=== PATIENT | female | born 1980 | race Caucasian/White ===

== ENCOUNTER → 2017-10-21 10:20 | Outpatient (CLI) | payer OTHER, SELFPAY ==
[2017-10-21 10:54] LABS: Add Manual Diff / Slide Review NO; Basophils Percent Auto 1.2 % (0-2); Hematocrit 41.2 % (36-46); Hemoglobin 14.2 g/dL (12.0-16.0); Lymphocytes Percent Auto 27.9 % (25-40); Mean Corpuscular HGB Conc 34.5 % (30-36); Mean Corpuscular Hemoglobin 30.9 PG (26-34); Mean Corpuscular Volume 89.5 fL (80-100); Monocytes Percent Auto 7.1 % (3-14); Neutrophils Absolute Auto 3900 /uL (3000-5900); Neutrophils Percent Auto 61.8 % (50-75); Platelet Count 252 X10^3/uL (150-400); Red Cell Distribution Width 13.4 % (11.6-14.8); White Blood Cell Count 6.4 X10^3/uL (4.5-11.0)
[2017-10-21 11:27] LABS: Alanine Aminotransferase 36 IU/L (9-52); Albumin 5.1 g/dL (3.5-5.0); Albumin Globulin Ratio 1.8 (1.0-2.8); Alkaline Phosphatase 50 U/L (38-126); Aspartate Aminotransferase 29 IU/L (14-36); Bilirubin Total 0.8 mg/dL (0.2-1.3); Blood Urea Nitrogen 14 mg/dL (7-17); Calcium 9.7 mg/dL (8.4-10.2); Carbon Dioxide 25 mmol/L (22-32); Chloride 100 mmol/L (98-107); Cholesterol 213 mg/dL (140-199); Estimated Glomerular Filt Rate > 60.0 mL/min (>60); Globulin 2.9 g/dL (1.7-4.1); Glucose 83 mg/dL (70-100); HDL Cholesterol 69 mg/dL (40-60); HEMOLYSIS < 15 (0-50); LDL Cholesterol Calculated 128 mg/dL (<100); Potassium 4.8 mmol/L (3.4-5.1); Sodium 140 mmol/L (137-145); Triglycerides 81 mg/dL (35-150)
[2017-10-21 11:45] LABS: Free T3, Triiodothyronine Free 2.72 pg/mL (2.77-5.27); Free T4, Direct Thyroxine 1.03 ng/dL (0.78-2.19)
[2017-10-21 11:58] LABS: Thyroid Stimulating Hormone 1.76 uIU/mL (0.47-4.68)
== END ==
PROVIDERS: PCP Family Medicine Sleep Medicine; Visit Provider Psychiatry & Neurology Psychiatry
DX: R53.83 Other fatigue (principal); Z79.899 Other long term (current) drug therapy
CPT/HCPCS: 36415; 80053; 80061; 84439; 84443; 84481; 85025

== ENCOUNTER 2018-02-02 13:18 | Outpatient (RCR) | payer OTHER, SELFPAY | END 2018-08-10 08:41 | disposition home or self-care (01) | LOC: SP 13:18 | PROVIDERS: PCP Family Medicine Sleep Medicine; Visit Provider Family Medicine | DX: Q38.1 Ankyloglossia (principal); J98.8 Other specified respiratory disorders | CPT/HCPCS: 92522 ==

== ENCOUNTER 2018-05-19 10:30 | Outpatient (RCR) | payer OTHER, SELFPAY ==
--- NOTE | 2018-02-10 17:36 | PT.OIE ---
Current Diagnoses Other female genital prolapse (02/08/18) Past Medical History (Last Updated 12/21/17 @ 09:15 by Clary Kohler) Asthma (Chronic) Hayfever (Chronic) Hidradenitis suppurativa (Chronic) 3 para 3 (Resolved) Normal Papanicolaou smear (Resolved) Recurrent sinusitis (Resolved) Past Surgical History (Last Updated 12/21/17 @ 09:12 by Clary Kohler) History of bilateral tubal ligation (Resolved) History of surgical removal of ganglion cyst (Resolved) Status post delivery (Resolved) Status post functional endoscopic sinus surgery (FESS) (Resolved 2009) Provider Visit Care Team Role Provider Type Pauline Junior DO Primary Care Provider Physician Specialty: Family Practice Address: [address] [place] [address] Email: [email or web address] Tana Morales MD Attending Provider Physician Specialty: POURER METAL Address: [address] [place] [address] Email: [email or web address] Physical Therapy Initial Evaluation PT-OP-A Visit Information Start: 02/10/18 10:17 Freq: Status: Active Protocol: Document 02/08/18 13:00 [facility] (Rec: 02/10/18 10:30 [facility] [email or web address]) Out-Patient Physical Therapy Visit Information Visit Information Visit Type Initial Evaluation Visit Start Time 13:00 Visit Stop Time 13:45 Total Visit Minutes 45 Visit Number 1 Evaluation Information Evaluation Date 02/08/18 PT-OP-B Current Condition Start: 02/10/18 10:17 Freq: Status: Active Protocol: Document 02/08/18 13:00 [facility] (Rec: 02/10/18 10:30 [facility] [email or web address]) Current Condition History of Current Condition Onset Date 4 years ago Current Complaints c/o worsening urinary urgency and frequency to void History of Current Condition Faraz is a 37 year old female who has had 3 deliveries. The last one being 4 years ago. SHe notes that for a year following her last delivery she has experienced pubic bone pain symptoms. She also began to experience increasing urgency to void and decresaed ability to delay the need to void. At this point Faraz reports she restricts her fluid intake and often feel dehydrated due to severe bladder urgency. She also reports that intercourse is uncomfortable despite position . PT-OP-C Subjective Start: 02/10/18 10:17 Freq: Status: Active Protocol: Document 02/08/18 17:05 [facility] (Rec: 02/10/18 17:36 [facility] [email or web address]) OP-PT Pain Assessment Pain Assessment Grid Paper Pain Assessment Grid Completed Yes Location suprapubic fascia and pubic bone Pain Location Details pain rated 4/10 distracting pain Scale Used Numeric (1 - 10) PT-OP-F Manual Assessment Start: 02/10/18 10:17 Freq: Status: Active Protocol: Document 02/08/18 17:05 [facility] (Rec: 02/10/18 17:36 [facility] [email or web address]) Manual Assessments Soft Tissue Assessment Soft Tissue Mobility Assessment scar tissue tightness and myofascial restrictions in the suprapubic fascia, left adductor attachments to the pubic bone, iliopsoas, tightness of the transverse perineal musculature and left illiococcygeus PT-OP-I Pelvic Floor Start: 02/10/18 10:17 Freq: Status: Active Protocol: Document 02/08/18 17:05 [facility] (Rec: 02/10/18 17:36 [facility] [email or web address]) Pelvic Floor Assessment Urine Pelvic Floor Surgery No Urinary Symptoms Urge Sensation Leaks Per Day few drops Voiding Frequency 10+ times per day Nocturia 2-3 times per night Urine Pad Type Panty Liner Pelvic Clock Pelvic Clock 3-6 Guarding Hypertonic Pelvic Clock Other MMT 3/5 for levator ani, left sided guarding of the iliococcygeus repetitive pelvic floor contractions increase c/o pubic bone pain SEMG (uV) Baseline 2.19 10 Second Contraction 6.89 Contraction Ability Manual Muscle Testing Left 3 Manual Muscle Testing Right 3 Manual Muscle Testing Anterior 3 Manual Muscle Testing Posterior 3 Comments Pelvic Floor Comments average contraction on EMG biofeedback is 6.89, maximum contraction of 12.3 and average rest of 2.19 Faraz began noting pubic bone pain around rep #7/10 PT-OP-Q Treatments Start: 02/10/18 10:17 Freq: Status: Active Protocol: Document 02/08/18 17:05 [facility] (Rec: 02/10/18 17:36 [facility] [email or web address]) Therapeutic Exercises Supine Exercises 2 Supine Exercise Name pelvic floor contract/relax Reps/Minutes 5 second hold 10 second relax 1 Supine Exercise Name Cobra stretch Side bilateral Manual Therapy Treatment Soft Tissue Mobilization 1 Body Location MFR over the bladder and suprapubic fascia Mobilization Type Myofascial Release Body Position Hooklying Self-Care/Home Management Treatment Education Patient Education Pain Management Other Education self scar tissue massage over the bladder and ILU self massage PT-OP-T Assessment and Plan Start: 02/10/18 10:17 Freq: Status: Active Protocol: Document 02/08/18 17:05 [facility] (Rec: 02/10/18 17:36 [facility] [email or web address]) Physical Therapy Assessment Rehab Potential Rehabilitation Potential Excellent Evaluation Complexity Number of Personal Factors/Comorbidities 0 Number of Body Systems Impaired 1-2 Clinical Presentation at Evaluation Stable Impairments Impairments Activity Tolerance Pain Soft Tissue Mobility Strength Goals Four Impairment Decreased endurance and strength of the levator ani Planning Associate Goal (LTG) Improve overall strength and endurance of the pelvic floor without muscle guarding for improved bladder support LTG Duration 8 weeks Three Impairment levator ani and transverse perineal guarding/pubic bone pain Short Term Goal (STG) Faraz reports decreased c/o pubic pain and has decreased pelvic floor guarding on the left STG Duration 4 weeks Planning Associate Goal (LTG) Faraz is able to tightnen the pelvic floor greater than 10 reps without pubic bone discomfort LTG Duration 8 weeks Two Impairment scar tissue and myofascial restrictions across suprapubic fascia/bladder Planning Associate Goal (LTG) Decrease myofascial adhesions with manual therapy techniques and stretches to help reduce pubic pain and improve the bladder capacity to fill LTG Duration 8 weeks One Impairment urinary urgency that limits activity and limits fluid intake Short Term Goal (STG) Faraz is educated on bladder irritants and is instructed in the urge deference technique and bladder retraining STG Duration 4 weeks Assessment Summary Assessment Faraz presents to physical therapy today with complaints of urinary urgency and frequency and the inability to delay the need to urinary greater than 1-2 minutes. Faraz reports she often will with hold fluids due to this problem and feels frequently dehydrated. She is also complaining of pubic pain that she has had since she was with her 4th child. With examination Faarz has a great deal of scar tissue over the bladder from her 3 C- sections and presents with myofascial tissue tightness into the left lower thigh and adductor attachments to the pubic bone. She is guarded in the left transverse perineal musculature and illiococcygeus . Pelvic floor repetitions cause a reproduction of this pain. Treatment will first address the tissue tightness and guarding and will then progress to overall strengthening of the pelvic floor, bladder retraining, and urge deference technique. Physical Therapy Plan Frequency and Duration Frequency of Treatment 1x/Week Duration of Treatment 8 weeks Plan of Care Start Date 02/08/18 Plan of Care End Date 04/05/18 Therapeutic Interventions Therapeutic Interventions Home Exercise Program Manual Therapy Neuromuscular Re-education Self-Care/Home Management Soft Tissue Mobilization Therapeutic Exercises Modalities Biofeedback
--- NOTE | 2018-02-10 17:36 | PT.OPPOC ---
Current Diagnoses Other female genital prolapse (02/08/18) Provider Visit Care Team Role Provider Type Pauline Junior DO Primary Care Provider Physician Specialty: Family Practice Address: [address] [place] [address], [id number] Email: [email or web address] Tana Morales MD Attending Provider Physician Specialty: SUBCONTRACT MANAGER Address: [address] [place] [address], [id number] Email: [email or web address] Plan Of Care PT-OP-T Assessment and Plan Start: 02/10/18 10:17 Freq: Status: Active Protocol: Document 02/08/18 17:05 [facility] (Rec: 02/10/18 17:36 [facility] [email or web address]) Physical Therapy Assessment Rehab Potential Rehabilitation Potential Excellent Evaluation Complexity Number of Personal Factors/Comorbidities 0 Number of Body Systems Impaired 1-2 Clinical Presentation at Evaluation Stable Impairments Impairments Activity Tolerance Pain Soft Tissue Mobility Strength Goals Four Impairment Decreased endurance and strength of the levator ani Mcc Goal (LTG) Improve overall strength and endurance of the pelvic floor without muscle guarding for improved bladder support LTG Duration 8 weeks Three Impairment levator ani and transverse perineal guarding/pubic bone pain Short Term Goal (STG) Faraz reports decreased c/o pubic pain and has decreased pelvic floor guarding on the left STG Duration 4 weeks Mcc Goal (LTG) Faraz is able to tightnen the pelvic floor greater than 10 reps without pubic bone discomfort LTG Duration 8 weeks Two Impairment scar tissue and myofascial restrictions across suprapubic fascia/bladder Meter Repairer Helper Goal (LTG) Decrease myofascial adhesions with manual therapy techniques and stretches to help reduce pubic pain and improve the bladder capacity to fill LTG Duration 8 weeks One Impairment urinary urgency that limits activity and limits fluid intake Short Term Goal (STG) Faraz is educated on bladder irritants and is instructed in the urge deference technique and bladder retraining STG Duration 4 weeks Assessment Summary Assessment Faraz presents to physical therapy today with complaints of urinary urgency and frequency and the inability to delay the need to urinary greater than 1-2 minutes. Faraz reports she often will with hold fluids due to this problem and feels frequently dehydrated. She is also complaining of pubic pain that she has had since she was with her 4th child. With examination Faraz has a great deal of scar tissue over the bladder from her 3 C- sections and presents with myofascial tissue tightness into the left lower thigh and adductor attachments to the pubic bone. She is guarded in the left transverse perineal musculature and illiococcygeus . Pelvic floor repetitions cause a reproduction of this pain. Treatment will first address the tissue tightness and guarding and will then progress to overall strengthening of the pelvic floor, bladder retraining, and urge deference technique. Physical Therapy Plan Frequency and Duration Frequency of Treatment 1x/Week Duration of Treatment 8 weeks Plan of Care Start Date 02/08/18 Plan of Care End Date 04/05/18 Therapeutic Interventions Therapeutic Interventions Home Exercise Program Manual Therapy Neuromuscular Re-education Self-Care/Home Management Soft Tissue Mobilization Therapeutic Exercises Modalities Biofeedback Plan of Care Dates Plan of Care Start Date 02/08/18 Plan of Care End Date 04/05/18 Please Sign and Return: I have reviewed this Plan of Care and certify that the skilled therapy services above are required to meet the patient?s needs. Physician Signature Date Printed Name and Credentials Clinical Instructor Signature Printed Name and Credentials
--- NOTE | 2018-02-22 12:00 | PT.OTN ---
Current Diagnoses Other female genital prolapse (02/22/18) Physical Therapy Treatment Note PT-OP-A Visit Information Start: 02/10/18 10:17 Freq: Status: Active Protocol: Document 02/22/18 11:48 [facility] (Rec: 02/22/18 12:00 [facility] [email or web address]) Out-Patient Physical Therapy Visit Information Visit Information Visit Type Treatment Note Visit Start Time 10:30 Visit Stop Time 11:15 Total Visit Minutes 45 Visit Number 2 Evaluation Information Evaluation Date 02/08/18 PT-OP-B Current Condition Start: 02/10/18 10:17 Freq: Status: Active Protocol: Document 02/08/18 13:00 [facility] (Rec: 02/10/18 10:30 [facility] [email or web address]) Current Condition History of Current Condition Onset Date 4 years ago Current Complaints c/o worsening urinary urgency and frequency to void History of Current Condition Faraz is a 37 year old female who has had 3 deliveries. The last one being 4 years ago. SHe notes that for a year following her last delivery she has experienced pubic bone pain symptoms. She also began to experience increasing urgency to void and decresaed ability to delay the need to void. At this point Faraz reports she restricts her fluid intake and often feel dehydrated due to severe bladder urgency. She also reports that intercourse is uncomfortable despite position . PT-OP-C Subjective Start: 02/10/18 10:17 Freq: Status: Active Protocol: Document 02/22/18 11:48 [facility] (Rec: 02/22/18 12:00 [facility] [email or web address]) OP-PT Subjective Patient Comments Patient Comments Faraz reports she can feel tail bone pain after she has done pelvic floor tightening. She can also feel this pain in ballet class as well. She did drop her exercises down to 5 reps at a time due to this PT-OP-F Manual Assessment Start: 02/10/18 10:17 Freq: Status: Active Protocol: Document 02/08/18 17:05 [facility] (Rec: 02/10/18 17:36 [facility] [email or web address]) Manual Assessments Soft Tissue Assessment Soft Tissue Mobility Assessment scar tissue tightness and myofascial restrictions in the suprapubic fascia, left adductor attachments to the pubic bone, iliopsoas, tightness of the transverse perineal musculature and left illiococcygeus PT-OP-I Pelvic Floor Start: 02/10/18 10:17 Freq: Status: Active Protocol: Document 02/08/18 17:05 [facility] (Rec: 02/10/18 17:36 [facility] [email or web address]) Pelvic Floor Assessment Urine Pelvic Floor Surgery No Urinary Symptoms Urge Sensation Leaks Per Day few drops Voiding Frequency 10+ times per day Nocturia 2-3 times per night Urine Pad Type Panty Liner Pelvic Clock Pelvic Clock 3-6 Guarding Hypertonic Pelvic Clock Other MMT 3/5 for levator ani, left sided guarding of the iliococcygeus repetitive pelvic floor contractions increase c/o pubic bone pain SEMG (uV) Baseline 2.19 10 Second Contraction 6.89 Contraction Ability Manual Muscle Testing Left 3 Manual Muscle Testing Right 3 Manual Muscle Testing Anterior 3 Manual Muscle Testing Posterior 3 Comments Pelvic Floor Comments average contraction on EMG biofeedback is 6.89, maximum contraction of 12.3 and average rest of 2.19 Faraz began noting pubic bone pain around rep #7/10 PT-OP-Q Treatments Start: 02/10/18 10:17 Freq: Status: Active Protocol: Document 02/22/18 11:48 [facility] (Rec: 02/22/18 12:00 [facility] [email or web address]) Therapeutic Exercises Supine Exercises 3 Supine Exercise Name 1/2 foam roll stretch and supine over ball stretch Standing Exercises 1 Standing Exercise Name iliopsoas stretch in a lunge position Manual Therapy Treatment Soft Tissue Mobilization 2 Body Location iliopsoas release manually 1 Body Location MFR over the bladder and suprapubic fascia Mobilization Type Myofascial Release Body Position Hooklying Self-Care/Home Management Treatment Education Patient Education Home Exercise Program Other Education pt educated in home exercise program of stretches and to hold off on pelvic floor isolations at this time. Activities Self-Care/Home Management Activities Faraz was educated in the urge deference technique to begin trying at home and she was also given a bladder diary to begin keeping track of voiding intervals PT-OP-R Modalities Start: 02/10/18 10:17 Freq: Status: Active Protocol: Document 02/22/18 11:48 [facility] (Rec: 02/22/18 12:00 [facility] [email or web address]) Ultrasound Therapy Treatment suprapubic abdominal fascia Treatment Duration (minutes) 8 Patient Position Supine Coupling Medium Ultrasound Gel Applicator Size (cm2) 5 Frequency Setting (mHz) 1 Intensity Setting (w/cm2) 1.5 PT-OP-T Assessment and Plan Start: 02/10/18 10:17 Freq: Status: Active Protocol: Document 02/22/18 11:48 [facility] (Rec: 02/22/18 12:00 [facility] [email or web address]) Physical Therapy Assessment Assessment Summary Assessment Left greater than right iliopsoas tightness and Faraz could feel this with a hip flexor stretch. We talked about starting the urge deference technique at home and beginning a bladder diary for home as well. There is a good amount of scar tissue anteriorly above the bladder. Faraz cant really feel a stretch with the cobra but can with the lunge position and over the ball so she will focus on these for home. I had her hold off on her pelvic floor contractions until next visit as this was causing her to guard more in her pelvic floor Physical Therapy Plan Frequency and Duration Frequency of Treatment 1x/Week Duration of Treatment 8 weeks Plan of Care Start Date 02/08/18 Plan of Care End Date 04/05/18 Therapeutic Interventions Therapeutic Interventions Home Exercise Program Manual Therapy Neuromuscular Re-education Self-Care/Home Management Soft Tissue Mobilization Therapeutic Exercises Modalities Biofeedback Next Visit Focus/Plan Next Note Type Treatment Note Next Visit Plan revisit EMG biofeedback next visit for relaxed awareness of the pelvic floor.
--- NOTE | 2018-03-03 12:28 | PT.OTN ---
Current Diagnoses Other female genital prolapse (03/03/18) Physical Therapy Treatment Note PT-OP-A Visit Information Start: 02/10/18 10:17 Freq: Status: Active Protocol: Document 03/03/18 12:21 [facility] (Rec: 03/03/18 12:28 [facility] [email or web address]) Out-Patient Physical Therapy Visit Information Visit Information Visit Type Treatment Note Visit Start Time 10:30 Visit Stop Time 11:15 Total Visit Minutes 45 Visit Number 3 PT-OP-B Current Condition Start: 02/10/18 10:17 Freq: Status: Active Protocol: Document 02/08/18 13:00 [facility] (Rec: 02/10/18 10:30 [facility] [email or web address]) Current Condition History of Current Condition Onset Date 4 years ago Current Complaints c/o worsening urinary urgency and frequency to void History of Current Condition Faraz is a 37 year old female who has had 3 deliveries. The last one being 4 years ago. SHe notes that for a year following her last delivery she has experienced pubic bone pain symptoms. She also began to experience increasing urgency to void and decresaed ability to delay the need to void. At this point Faraz reports she restricts her fluid intake and often feel dehydrated due to severe bladder urgency. She also reports that intercourse is uncomfortable despite position . PT-OP-C Subjective Start: 02/10/18 10:17 Freq: Status: Active Protocol: Document 03/03/18 12:21 [facility] (Rec: 03/03/18 12:28 [facility] [email or web address]) OP-PT Subjective Patient Comments Patient Comments Faraz reports she has been using the urge technique and feels it is helping. She is still feeling the tailbone pain especially if she contracts the left gluteal region. PT-OP-F Manual Assessment Start: 02/10/18 10:17 Freq: Status: Active Protocol: Document 02/08/18 17:05 [facility] (Rec: 02/10/18 17:36 [facility] [email or web address]) Manual Assessments Soft Tissue Assessment Soft Tissue Mobility Assessment scar tissue tightness and myofascial restrictions in the suprapubic fascia, left adductor attachments to the pubic bone, iliopsoas, tightness of the transverse perineal musculature and left illiococcygeus PT-OP-I Pelvic Floor Start: 02/10/18 10:17 Freq: Status: Active Protocol: Document 02/08/18 17:05 [facility] (Rec: 02/10/18 17:36 [facility] [email or web address]) Pelvic Floor Assessment Urine Pelvic Floor Surgery No Urinary Symptoms Urge Sensation Leaks Per Day few drops Voiding Frequency 10+ times per day Nocturia 2-3 times per night Urine Pad Type Panty Liner Pelvic Clock Pelvic Clock 3-6 Guarding Hypertonic Pelvic Clock Other MMT 3/5 for levator ani, left sided guarding of the iliococcygeus repetitive pelvic floor contractions increase c/o pubic bone pain SEMG (uV) Baseline 2.19 10 Second Contraction 6.89 Contraction Ability Manual Muscle Testing Left 3 Manual Muscle Testing Right 3 Manual Muscle Testing Anterior 3 Manual Muscle Testing Posterior 3 Comments Pelvic Floor Comments average contraction on EMG biofeedback is 6.89, maximum contraction of 12.3 and average rest of 2.19 Faraz began noting pubic bone pain around rep #7/10 PT-OP-Q Treatments Start: 02/10/18 10:17 Freq: Status: Active Protocol: Document 03/03/18 12:21 [facility] (Rec: 03/03/18 12:28 [facility] [email or web address]) Therapeutic Exercises Supine Exercises 4 Supine Exercise Name pelvic floor contract relax quick contractions 2 Supine Exercise Name pelvic floor contract/relax Reps/Minutes 10 second hold 10 second relax Comments improved resting tone to baseline Manual Therapy Treatment Soft Tissue Mobilization 4 Body Location left adductor release 3 Body Location pelvic floor internal MFR Comments release of the left lateral and posterior wall of the levator ani and left transverse perineal musculature. PT-OP-R Modalities Start: 02/10/18 10:17 Freq: Status: Active Protocol: Document 02/22/18 11:48 [facility] (Rec: 02/22/18 12:00 [facility] [email or web address]) Ultrasound Therapy Treatment suprapubic abdominal fascia Treatment Duration (minutes) 8 Patient Position Supine Coupling Medium Ultrasound Gel Applicator Size (cm2) 5 Frequency Setting (mHz) 1 Intensity Setting (w/cm2) 1.5 PT-OP-T Assessment and Plan Start: 02/10/18 10:17 Freq: Status: Active Protocol: Document 03/03/18 12:21 [facility] (Rec: 03/03/18 12:28 [facility] [email or web address]) Physical Therapy Assessment Assessment Summary Assessment Faraz tolerated manual treatment well today. She is able to relax the pelvic floor now but was tight in the left transverse perineal musculatre and coccyx was sidebent left. On EMG biofeedback resting tone was decreased to 0! Her average contraction is 22.9 uv and maximum contraction is 48.3 uv Physical Therapy Plan Frequency and Duration Frequency of Treatment 1x/Week Duration of Treatment 8 weeks Plan of Care Start Date 02/08/18 Plan of Care End Date 04/05/18 Therapeutic Interventions Therapeutic Interventions Home Exercise Program Manual Therapy Neuromuscular Re-education Self-Care/Home Management Soft Tissue Mobilization Therapeutic Exercises Modalities Biofeedback Next Visit Focus/Plan Next Note Type Treatment Note Next Visit Plan reassess tail bone pain, revisit MFR for the abdomen and begin TA faciltation
--- NOTE | 2018-03-10 10:54 | PT.OTN ---
Current Diagnoses Other female genital prolapse (03/10/18) Physical Therapy Treatment Note PT-OP-A Visit Information Start: 02/10/18 10:17 Freq: Status: Active Protocol: Document 03/10/18 10:48 [facility] (Rec: 03/10/18 10:54 [facility] [email or web address]) Out-Patient Physical Therapy Visit Information Visit Information Visit Type Treatment Note Visit Start Time 09:45 Visit Stop Time 10:30 Total Visit Minutes 45 Visit Number 4 Evaluation Information Evaluation Date 02/08/18 PT-OP-B Current Condition Start: 02/10/18 10:17 Freq: Status: Active Protocol: Document 02/08/18 13:00 [facility] (Rec: 02/10/18 10:30 [facility] [email or web address]) Current Condition History of Current Condition Onset Date 4 years ago Current Complaints c/o worsening urinary urgency and frequency to void History of Current Condition Faraz is a 37 year old female who has had 3 deliveries. The last one being 4 years ago. SHe notes that for a year following her last delivery she has experienced pubic bone pain symptoms. She also began to experience increasing urgency to void and decresaed ability to delay the need to void. At this point Faraz reports she restricts her fluid intake and often feel dehydrated due to severe bladder urgency. She also reports that intercourse is uncomfortable despite position . PT-OP-C Subjective Start: 02/10/18 10:17 Freq: Status: Active Protocol: Document 03/10/18 10:48 [facility] (Rec: 03/10/18 10:54 [facility] [email or web address]) OP-PT Subjective Patient Comments Patient Comments Working hard at relaxing the inner thighs. She still feels tight in the tailbone area and left labia region. Faraz reports her urinary flow is a little better first thing in the AM now PT-OP-F Manual Assessment Start: 02/10/18 10:17 Freq: Status: Active Protocol: Document 02/08/18 17:05 [facility] (Rec: 02/10/18 17:36 [facility] [email or web address]) Manual Assessments Soft Tissue Assessment Soft Tissue Mobility Assessment scar tissue tightness and myofascial restrictions in the suprapubic fascia, left adductor attachments to the pubic bone, iliopsoas, tightness of the transverse perineal musculature and left illiococcygeus PT-OP-I Pelvic Floor Start: 10/18/18 10:17 Freq: Status: Active Protocol: Document 02/08/18 17:05 [facility] (Rec: 02/10/18 17:36 [facility] [email or web address]) Pelvic Floor Assessment Urine Pelvic Floor Surgery No Urinary Symptoms Urge Sensation Leaks Per Day few drops Voiding Frequency 10+ times per day Nocturia 2-3 times per night Urine Pad Type Panty Liner Pelvic Clock Pelvic Clock 3-6 Guarding Hypertonic Pelvic Clock Other MMT 3/5 for levator ani, left sided guarding of the iliococcygeus repetitive pelvic floor contractions increase c/o pubic bone pain SEMG (uV) Baseline 2.19 10 Second Contraction 6.89 Contraction Ability Manual Muscle Testing Left 3 Manual Muscle Testing Right 3 Manual Muscle Testing Anterior 3 Manual Muscle Testing Posterior 3 Comments Pelvic Floor Comments average contraction on EMG biofeedback is 6.89, maximum contraction of 12.3 and average rest of 2.19 Faraz began noting pubic bone pain around rep #7/10 PT-OP-Q Treatments Start: 02/10/18 10:17 Freq: Status: Active Protocol: Document 03/10/18 10:48 [facility] (Rec: 03/10/18 10:54 [facility] [email or web address]) Manual Therapy Treatment Soft Tissue Mobilization 4 Body Location left adductor release 3 Body Location pelvic floor internal MFR Comments release of the left lateral and posterior wall of the levator ani and left transverse perineal musculature. Pelvic diaphragm release 1 Body Location MFR over the bladder and suprapubic fascia Mobilization Type Myofascial Release Body Position Hooklying Comments also worked over the pubic symphysis with MFR PT-OP-R Modalities Start: 02/10/18 10:17 Freq: Status: Active Protocol: Document 02/22/18 11:48 [facility] (Rec: 02/22/18 12:00 [facility] [email or web address]) Ultrasound Therapy Treatment suprapubic abdominal fascia Treatment Duration (minutes) 8 Patient Position Supine Coupling Medium Ultrasound Gel Applicator Size (cm2) 5 Frequency Setting (mHz) 1 Intensity Setting (w/cm2) 1.5 PT-OP-T Assessment and Plan Start: 02/10/18 10:17 Freq: Status: Active Protocol: Document 03/10/18 10:48 [facility] (Rec: 03/10/18 10:54 [facility] [email or web address]) Physical Therapy Assessment Assessment Summary Assessment good reduction in tone on the left lateral wall of the levator ani. Resting tone started at 5 but with biofeedback and awareness Faraz was able to bring this tone down to baseline again. Her average is 25.0 uv and max of 47.4 uv. Physical Therapy Plan Frequency and Duration Frequency of Treatment 1x/Week Duration of Treatment 8 weeks Plan of Care Start Date 02/08/18 Plan of Care End Date 04/05/18 Therapeutic Interventions Therapeutic Interventions Home Exercise Program Manual Therapy Neuromuscular Re-education Self-Care/Home Management Soft Tissue Mobilization Therapeutic Exercises Modalities Biofeedback Next Visit Focus/Plan Next Note Type Treatment Note Next Visit Plan begin standing dynamic pelvic floor activation and relaxation, go through squats and cat/cow for pelvic relaxation, TA facilitation in quadruped next visit
--- NOTE | 2018-03-24 11:44 | PT.OTN ---
Current Diagnoses Other female genital prolapse (03/24/18) Physical Therapy Treatment Note PT-OP-A Visit Information Start: 02/10/18 10:17 Freq: Status: Active Protocol: Document 03/24/18 11:34 [facility] (Rec: 03/24/18 11:44 [facility] [email or web address]) Out-Patient Physical Therapy Visit Information Visit Information Visit Type Treatment Note Visit Start Time 09:45 Visit Stop Time 10:30 Total Visit Minutes 45 Visit Number 5 PT-OP-B Current Condition Start: 02/10/18 10:17 Freq: Status: Active Protocol: Document 02/08/18 13:00 [facility] (Rec: 02/10/18 10:30 [facility] [email or web address]) Current Condition History of Current Condition Onset Date 4 years ago Current Complaints c/o worsening urinary urgency and frequency to void History of Current Condition Faraz is a 37 year old female who has had 3 deliveries. The last one being 4 years ago. SHe notes that for a year following her last delivery she has experienced pubic bone pain symptoms. She also began to experience increasing urgency to void and decresaed ability to delay the need to void. At this point Faraz reports she restricts her fluid intake and often feel dehydrated due to severe bladder urgency. She also reports that intercourse is uncomfortable despite position . PT-OP-C Subjective Start: 02/10/18 10:17 Freq: Status: Active Protocol: Document 03/24/18 11:34 [facility] (Rec: 03/24/18 11:44 [facility] [email or web address]) OP-PT Subjective Patient Comments Patient Comments reports decreased pain in the tail bone but still feeling the left labia region tightnes with pelvic floor contraction . Has been working to decrease water intake PT-OP-F Manual Assessment Start: 02/10/18 10:17 Freq: Status: Active Protocol: Document 02/08/18 17:05 [facility] (Rec: 02/10/18 17:36 [facility] [email or web address]) Manual Assessments Soft Tissue Assessment Soft Tissue Mobility Assessment scar tissue tightness and myofascial restrictions in the suprapubic fascia, left adductor attachments to the pubic bone, iliopsoas, tightness of the transverse perineal musculature and left illiococcygeus PT-OP-I Pelvic Floor Start: 02/10/18 10:17 Freq: Status: Active Protocol: Document 02/08/18 17:05 [facility] (Rec: 02/10/18 17:36 [facility] [email or web address]) Pelvic Floor Assessment Urine Pelvic Floor Surgery No Urinary Symptoms Urge Sensation Leaks Per Day few drops Voiding Frequency 10+ times per day Nocturia 2-3 times per night Urine Pad Type Panty Liner Pelvic Clock Pelvic Clock 3-6 Guarding Hypertonic Pelvic Clock Other MMT 3/5 for levator ani, left sided guarding of the iliococcygeus repetitive pelvic floor contractions increase c/o pubic bone pain SEMG (uV) Baseline 2.19 10 Second Contraction 6.89 Contraction Ability Manual Muscle Testing Left 3 Manual Muscle Testing Right 3 Manual Muscle Testing Anterior 3 Manual Muscle Testing Posterior 3 Comments Pelvic Floor Comments average contraction on EMG biofeedback is 6.89, maximum contraction of 12.3 and average rest of 2.19 Faraz began noting pubic bone pain around rep #7/10 PT-OP-Q Treatments Start: 02/10/18 10:17 Freq: Status: Active Protocol: Document 03/24/18 11:34 [facility] (Rec: 03/24/18 11:44 [facility] [email or web address]) Therapeutic Exercises Supine Exercises 4 Supine Exercise Name pelvic floor contract relax quick contractions Comments trial of prone pelvic floor contractions Other Exercises 1 Other Exercise Name quadraped TA facilitation Manual Therapy Treatment Soft Tissue Mobilization 5 Body Location transverse perineal release on the left 4 Body Location left adductor release Self-Care/Home Management Treatment Education Patient Education Home Exercise Program Other Education pt educated on use of gusha for self myofascial release, positioning in prone for pelvic floor facilitation without adductor involvement and TA awarensss on hands and knees without upper abdominal wall recruitment PT-OP-R Modalities Start: 02/10/18 10:17 Freq: Status: Active Protocol: Document 02/22/18 11:48 [facility] (Rec: 02/22/18 12:00 [facility] [email or web address]) Ultrasound Therapy Treatment suprapubic abdominal fascia Treatment Duration (minutes) 8 Patient Position Supine Coupling Medium Ultrasound Gel Applicator Size (cm2) 5 Frequency Setting (mHz) 1 Intensity Setting (w/cm2) 1.5 PT-OP-T Assessment and Plan Start: 02/10/18 10:17 Freq: Status: Active Protocol: Document 03/24/18 11:34 [facility] (Rec: 03/24/18 11:44 [facility] [email or web address]) Physical Therapy Assessment Assessment Summary Assessment no EMG biofeedback today as Faraz was menstruating. I did work on transverse perineal musculature and adductor release. She is having difficulty facilitating her pelvic floor without adductors but does better working in prone. Physical Therapy Plan Frequency and Duration Frequency of Treatment 1x/Week Duration of Treatment 8 weeks Plan of Care Start Date 02/08/18 Plan of Care End Date 04/05/18 Therapeutic Interventions Therapeutic Interventions Home Exercise Program Manual Therapy Neuromuscular Re-education Self-Care/Home Management Soft Tissue Mobilization Therapeutic Exercises Modalities Biofeedback Next Visit Focus/Plan Next Note Type Treatment Note Next Visit Plan continue x 1 additional visit with insurance limitations. Review guasha technique and possible dilator use.
--- NOTE | 2018-03-24 12:03 | PT.OPPN ---
Current Diagnoses Other female genital prolapse (03/24/18) Physical Therapy Progress Note PT-OP-A Visit Information Start: 02/10/18 10:17 Freq: Status: Active Protocol: Document 03/24/18 11:34 [facility] (Rec: 03/24/18 11:44 [facility] [email or web address]) Out-Patient Physical Therapy Visit Information Visit Information Visit Type Treatment Note Visit Start Time 09:45 Visit Stop Time 10:30 Total Visit Minutes 45 Visit Number 5 PT-OP-B Current Condition Start: 02/10/18 10:17 Freq: Status: Active Protocol: Document 02/08/18 13:00 [facility] (Rec: 02/10/18 10:30 [facility] [email or web address]) Current Condition History of Current Condition Onset Date 4 years ago Current Complaints c/o worsening urinary urgency and frequency to void History of Current Condition Faraz is a 37 year old female who has had 3 deliveries. The last one being 4 years ago. SHe notes that for a year following her last delivery she has experienced pubic bone pain symptoms. She also began to experience increasing urgency to void and decreased ability to delay the need to void. At this point Faraz reports she restricts her fluid intake and often feel dehydrated due to severe bladder urgency. She also reports that intercourse is uncomfortable despite position . PT-OP-C Subjective Start: 02/10/18 10:17 Freq: Status: Active Protocol: Document 03/24/18 11:34 [facility] (Rec: 03/24/18 11:44 [facility] [email or web address]) OP-PT Subjective Patient Comments Patient Comments reports decreased pain in the tail bone but still feeling the left labia region tightness with pelvic floor contraction Has been working to increase water intake PT-OP-F Manual Assessment Start: 02/10/18 10:17 Freq: Status: Active Protocol: Document 02/08/18 17:05 [facility] (Rec: 02/10/18 17:36 [facility] [email or web address]) Manual Assessments Soft Tissue Assessment Soft Tissue Mobility Assessment scar tissue tightness and myofascial restrictions in the suprapubic fascia, left adductor attachments to the pubic bone, iliopsoas, tightness of the transverse perineal musculature and left illiococcygeus PT-OP-I Pelvic Floor Start: 02/10/18 10:17 Freq: Status: Active Protocol: Document 03/24/18 11:57 [facility] (Rec: 03/24/18 12:01 [facility] [email or web address]) Pelvic Floor Assessment SEMG (uV) Baseline 0 10 Second Contraction 25 Comments Pelvic Floor Comments improved relaxed awareness of the pelvic floor, average contraction increased to 25 uv Able to rest to baseline on last trial of EMG on 03/10/18 Still feeling some left pubic bone pulling and adductors ja with contractions. Prone position is better for Faraz PT-OP-T Assessment and Plan Start: 02/10/18 10:17 Freq: Status: Active Protocol: Document 03/24/18 11:45 [facility] (Rec: 03/24/18 11:56 [facility] [email or web address]) Physical Therapy Assessment Progress Towards Goals Progress Towards Goals Progressing Toward Goals Assessment Summary Assessment Faraz has been seen for 5 visits in PT for urgency and frequency symptoms. Treatment is focusing on reducing scar tissue in lower abdomen and improving mobility of the fascial tissue over the bladder. She is working on increasing her water intake and has had some success with utilizing the urge deference technique. It was difficult for Faraz at first to facilitate her levator ani without a large amount of adductor guarding and pain into the pubic bone. We are working on isolating the pelvic floor without adductor guarding, this is a challenge for her and we are continuing to work on this. Faraz notes she has had pubic bone symptoms since her last . She has been able to reduce her resting tone on EMG biofeedback. She has noticed that her urine flow has gotten a little better first thing in the am as it had been very slow. Tail bone pain is also reducing as the posterior and left wall is able to relax at rest. Faraz would benefit from continued PT Physical Therapy Plan Frequency and Duration Frequency of Treatment 1x/Week Duration of Treatment 8 weeks Plan of Care Start Date 03/24/18 Plan of Care End Date 05/19/18 Therapeutic Interventions Therapeutic Interventions Home Exercise Program Manual Therapy Neuromuscular Re-education Self-Care/Home Management Soft Tissue Mobilization Therapeutic Exercises Modalities Biofeedback Next Visit Focus/Plan Next Note Type Treatment Note Next Visit Plan continue x 1 additional visit with insurance limitations. Review guasha technique and possible dilator use.
--- NOTE | 2018-05-04 12:26 | PT.OTN ---
Current Diagnoses Other female genital prolapse (05/03/18) Physical Therapy Treatment Note PT-OP-A Visit Information Start: 02/10/18 10:17 Freq: Status: Active Protocol: Document 05/03/18 09:00 [facility] (Rec: 05/04/18 12:26 [facility] [email or web address]) Out-Patient Physical Therapy Visit Information Visit Information Visit Type Treatment Note Visit Start Time 09:00 Visit Stop Time 09:45 Total Visit Minutes 45 Visit Number 6 Evaluation Information Evaluation Date 02/08/18 PT-OP-B Current Condition Start: 02/10/18 10:17 Freq: Status: Active Protocol: Document 02/08/18 13:00 [facility] (Rec: 02/10/18 10:30 [facility] [email or web address]) Current Condition History of Current Condition Onset Date 4 years ago Current Complaints c/o worsening urinary urgency and frequency to void History of Current Condition Faraz is a 37 year old female who has had 3 deliveries. The last one being 4 years ago. SHe notes that for a year following her last delivery she has experienced pubic bone pain symptoms. She also began to experience increasing urgency to void and decresaed ability to delay the need to void. At this point Faraz reports she restricts her fluid intake and often feel dehydrated due to severe bladder urgency. She also reports that intercourse is uncomfortable despite position . PT-OP-C Subjective Start: 02/10/18 10:17 Freq: Status: Active Protocol: Document 05/03/18 09:00 [facility] (Rec: 05/04/18 12:26 [facility] [email or web address]) OP-PT Subjective Patient Comments Patient Comments Faraz reports that overall her bladder symptoms are better and she is experiencing decreased urgency and leakage . She has been able to drink increased fluid. Her greatest complaint at this time is posterior tailbone discomfort and dysparunia. PT-OP-F Manual Assessment Start: 02/10/18 10:17 Freq: Status: Active Protocol: Document 02/08/18 17:05 [facility] (Rec: 02/10/18 17:36 [facility] [email or web address]) Manual Assessments Soft Tissue Assessment Soft Tissue Mobility Assessment scar tissue tightness and myofascial restrictions in the suprapubic fascia, left adductor attachments to the pubic bone, iliopsoas, tightness of the transverse perineal musculature and left illiococcygeus PT-OP-I Pelvic Floor Start: 02/10/18 10:17 Freq: Status: Active Protocol: Document 03/24/18 11:57 [facility] (Rec: 03/24/18 12:01 [facility] [email or web address]) Pelvic Floor Assessment SEMG (uV) Baseline 0 10 Second Contraction 25 Comments Pelvic Floor Comments improved relaxed awareness of the pelvic floor, average contraction increased to 25 uv . able to rest to baseline on last trial of EMG on 03/10/18 . Still feeling some left pubic bone pulling and adductors ja with contractions. Prone position is better for Faraz PT-OP-Q Treatments Start: 02/10/18 10:17 Freq: Status: Active Protocol: Document 05/03/18 09:00 [facility] (Rec: 05/04/18 12:26 [facility] [email or web address]) Manual Therapy Treatment Soft Tissue Mobilization 5 Body Location transverse perineal release on the left 4 Body Location left adductor release Comments pt shown self release with guasha 3 Body Location pelvic floor internal MFR Comments release of the left lateral and posterior wall of the levator ani and left transverse perineal musculature. Pelvic diaphragm release 2 Body Location sidelying obturator internus release 1 Body Location MFR over the bladder and suprapubic fascia Mobilization Type Myofascial Release Body Position Hooklying Comments also worked over the pubic symphysis with MFR Self-Care/Home Management Treatment Education Patient Education Home Exercise Program Other Education pt educated on use of dilator to help release the coccygeus, educated on use of miracle balls for self MFR of the posterior gluteals, and guasha technique reviewed PT-OP-R Modalities Start: 02/10/18 10:17 Freq: Status: Active Protocol: Document 02/22/18 11:48 [facility] (Rec: 02/22/18 12:00 [facility] [email or web address]) Ultrasound Therapy Treatment suprapubic abdominal fascia Treatment Duration (minutes) 8 Patient Position Supine Coupling Medium Ultrasound Gel Applicator Size (cm2) 5 Frequency Setting (mHz) 1 Intensity Setting (w/cm2) 1.5 PT-OP-T Assessment and Plan Start: 02/10/18 10:17 Freq: Status: Active Protocol: Document 05/03/18 09:00 [facility] (Rec: 05/04/18 12:26 [facility] [email or web address]) Physical Therapy Assessment Assessment Summary Assessment Faraz is still tight in the obturator internus on the left and coccygeus. I did release this region but also gave her a dilator today for home use and self release. Physical Therapy Plan Frequency and Duration Frequency of Treatment 1x/Week Duration of Treatment 8 weeks Plan of Care Start Date 03/24/18 Plan of Care End Date 05/19/18 Therapeutic Interventions Therapeutic Interventions Home Exercise Program Manual Therapy Neuromuscular Re-education Self-Care/Home Management Soft Tissue Mobilization Therapeutic Exercises Modalities Biofeedback Next Visit Focus/Plan Next Note Type Treatment Note Next Visit Plan review HEP stretches for the posterior gluteals and posterior pelvic floor, manual therapy techniques if needed, EMG biofeedback
--- NOTE | 2018-05-19 13:17 | PT.OTN ---
Current Diagnoses Other female genital prolapse (05/19/18) Physical Therapy Treatment Note PT-OP-A Visit Information Start: 02/10/18 10:17 Freq: Status: Active Protocol: Document 05/19/18 13:10 AMH (Rec: 05/19/18 13:17 AMH [email or web address]) Out-Patient Physical Therapy Visit Information Visit Information Visit Type Treatment Note Visit Start Time 10:30 Visit Stop Time 01:15 Total Visit Minutes 45 Visit Number 7 Evaluation Information Evaluation Date 02/08/18 PT-OP-B Current Condition Start: 02/10/18 10:17 Freq: Status: Active Protocol: Document 02/08/18 13:00 AMH (Rec: 02/10/18 10:30 AMH [email or web address]) Current Condition History of Current Condition Onset Date 4 years ago Current Complaints c/o worsening urinary urgency and frequency to void History of Current Condition Faraz is a 37 year old female who has had 3 deliveries. The last one being 4 years ago. SHe notes that for a year following her last delivery she has experienced pubic bone pain symptoms. She also began to experience increasing urgency to void and decresaed ability to delay the need to void. At this point Faraz reports she restricts her fluid intake and often feel dehydrated due to severe bladder urgency. She also reports that intercourse is uncomfortable despite position . PT-OP-C Subjective Start: 02/10/18 10:17 Freq: Status: Active Protocol: Document 05/19/18 13:10 AMH (Rec: 05/19/18 13:17 AMH [email or web address]) OP-PT Subjective Patient Comments Patient Comments Faraz reports she has been using the gusha and the miracle balls for self release . She notes when she releases the adductors that she will have more tailbone symptoms. [place] has been sore in the tail bone region PT-OP-F Manual Assessment Start: 02/10/18 10:17 Freq: Status: Active Protocol: Document 02/08/18 17:05 AMH (Rec: 02/10/18 17:36 AMH [email or web address]) Manual Assessments Soft Tissue Assessment Soft Tissue Mobility Assessment scar tissue tightness and myofascial restrictions in the suprapubic fascia, left adductor attachments to the pubic bone, iliopsoas, tightness of the transverse perineal musculature and left illiococcygeus PT-OP-I Pelvic Floor Start: 02/10/18 10:17 Freq: Status: Active Protocol: Document 03/24/18 11:57 AMH (Rec: 03/24/18 12:01 AMH [email or web address]) Pelvic Floor Assessment SEMG (uV) Baseline 0 10 Second Contraction 25 Comments Pelvic Floor Comments improved relaxed awareness of the pelvic floor, average contraction increased to 25 uv . able to rest to baseline on last trial of EMG on 03/10/18 . Still feeling some left pubic bone pulling and adductors ja with contractions. Prone position is better for Faraz PT-OP-Q Treatments Start: 02/10/18 10:17 Freq: Status: Active Protocol: Document 05/19/18 13:10 AMH (Rec: 05/19/18 13:17 AMH [email or web address]) Therapeutic Exercises Supine Exercises 4 Supine Exercise Name pelvic floor contract relax quick contractions Comments trial of prone pelvic floor contractions 3 Supine Exercise Name TA contractions with marching Comments level 1 A and 1 B Other Exercises 2 Other Exercise Name long sitting flexion stretch 1 Other Exercise Name squat stretch Manual Therapy Treatment Soft Tissue Mobilization 1 Body Location MFR over the bladder and suprapubic fascia Mobilization Type Myofascial Release Body Position Hooklying Comments also worked over the pubic symphysis with MFR Manual Techniques 1 Type MET for left pubic upslip Self-Care/Home Management Treatment Education Patient Education Home Exercise Program Other Education trial SI belt given to Faraz today. Also discussed trial of core shorts for improved compression of the SI joints PT-OP-R Modalities Start: 02/10/18 10:17 Freq: Status: Active Protocol: Document 02/22/18 11:48 AMH (Rec: 02/22/18 12:00 AMH [email or web address]) Ultrasound Therapy Treatment suprapubic abdominal fascia Treatment Duration (minutes) 8 Patient Position Supine Coupling Medium Ultrasound Gel Applicator Size (cm2) 5 Frequency Setting (mHz) 1 Intensity Setting (w/cm2) 1.5 PT-OP-T Assessment and Plan Start: 02/10/18 10:17 Freq: Status: Active Protocol: Document 05/19/18 13:10 AMH (Rec: 05/19/18 13:17 AMH [email or web address]) Physical Therapy Assessment Assessment Summary Assessment Decreased scar tissue over the abdominal scar today. Corrected pubic alignment as Faraz was in a left upslip. No pubic pain following with pelvic floor activation. More force closure is needed so trial of SI belt or core shorts maybe helpful. Also prolotherapy may also be beneficial. Physical Therapy Plan Frequency and Duration Frequency of Treatment 1x/Week Duration of Treatment 8 weeks Plan of Care Start Date 03/24/18 Plan of Care End Date 05/19/18 Therapeutic Interventions Therapeutic Interventions Home Exercise Program Manual Therapy Neuromuscular Re-education Self-Care/Home Management Soft Tissue Mobilization Therapeutic Exercises Modalities Biofeedback Next Visit Focus/Plan Next Note Type Treatment Note Next Visit Plan reassess pelvic floor with EMG biofeedback
== END 2018-05-20 11:59 ==
LOC: PHYS 10:30
PROVIDERS: PCP Family Medicine; Visit Provider Obstetrics & Gynecology
DX: N81.89 Other female genital prolapse (principal)
CPT/HCPCS: 97035; 97110; 97140; 97161; 97535

== ENCOUNTER → 2019-01-19 09:49 | Outpatient (CLI) | payer OTHER, SELFPAY ==
--- NOTE | 2019-01-19 | DI.US.S_ITS ---
PROCEDURE: US PELVIC COMPLETE INDICATIONS: DYSPARUNIA TECHNIQUE: Real-time scanning was performed of the pelvic organs, with image documentation. Additional endovaginal scanning was necessary due to incomplete visualization of the adnexal and endometrial structures by transabdominal scanning. COMPARISON: [facility], US, OB COMPLETE 14WKS OR MORE, 08/04/2013, 17:04. [facility], , OBSTETRICAL CARLOZ/POSITION, 09/08/2013, 17:04. [facility], US, PELVIC COMPLETE, 02/22/2013, 12:27. FINDINGS: Transabdominal scanning: Limited scanning through the kidneys shows no hydronephrosis. No pathologic free abdominal or pelvic fluid. Endovaginal scanning: Uterus: Uterus is retroverted measuring 11.6 x 4.2 x 5.8 cm. The endometrium measures 10 mm in combined thickness. Ovaries: Ovaries are normal in size and echotexture. Right ovary measures 2.8 x 1.2 x 1.0 cm. Left ovary measures 4.3 x 1.8 x 2.6 minutes. There is equal cyst measuring 1.8 cm and the left ovary, probably a corpus luteal cyst. A 1.6 cm simple cyst is noted in the right adnexa. IMPRESSION: 1. Normal uterus. 2. A 1.8 cm thickwalled cyst in the left ovary, most likely a corpus luteum. 3. A 1.6 cm simple cyst in the right adnexa, probably a paraovarian cyst. If clinically indicated, ultrasound followup may be obtained in 6 weeks. Dictated by: Corby Cowart M.D. on 01/19/2019 at 12:22 Approved by: Corby Cowart M.D. on 01/19/2019 at 12:28
== END ==
PROVIDERS: PCP Internal Medicine; Visit Provider Internal Medicine
DX: N94.10 Unspecified dyspareunia (principal); N83.292 Other ovarian cyst, left side; N94.89 Other specified conditions associated with female genital organs and menstrual cycle
CPT/HCPCS: 76830; 76856

== ENCOUNTER → 2019-03-03 09:15 | Outpatient (CLI) | payer OTHER, SELFPAY ==
--- NOTE | 2019-03-03 | DI.US.S_ITS ---
PROCEDURE: US PELVIC COMPLETE INDICATIONS: FOLLOW-UP OVARIAN CYST TECHNIQUE: Real-time scanning was performed of the pelvic organs, with image documentation. Additional endovaginal scanning was necessary due to incomplete visualization of the adnexal and endometrial structures by transabdominal scanning. COMPARISON: [facility], , US PELVIC COMPLETE, 01/19/2019, 10:04. FINDINGS: Transabdominal scanning: Limited scanning through the kidneys shows no hydronephrosis. No pathologic free abdominal or pelvic fluid. Endovaginal scanning: Uterus: Uterus is normal in size at 7.3 x 4.6 x 6.3 cm. The endometrium measures 6.1 mm in combined thickness. Ovaries: Normal ovaries measure 3.4 x 1.5 x 1.7 cm on the right and 3.8 x 1.9 x 2.6 cm on the left. Thick walled, complex left ovarian cyst has resolved and there is a new dominant follicular cyst of the left ovary measuring 17 mm. 13 mm right paraovarian cyst is unchanged. IMPRESSION: 1. Resolved complex left ovarian cyst. 2. No change in appearance of simple right paraovarian cyst. Dictated by: Alex LILLY Interpreted: Nemesio Mart MD on 03/03/2019 at 12:56 Approved by: Nemesio Mart M.D. on 03/03/2019 at 16:48
== END ==
PROVIDERS: Family Provider Obstetrics & Gynecology; PCP Internal Medicine; Visit Provider Internal Medicine
DX: N83.02 Follicular cyst of left ovary (principal); N83.291 Other ovarian cyst, right side
CPT/HCPCS: 76830; 76856

== ENCOUNTER → 2019-10-02 07:05 | Outpatient (CLI) | payer OTHER, SELFPAY ==
[2019-10-02 07:52] LABS: Add Manual Diff / Slide Review NO; Basophils Absolute Auto 100 /uL (0-100); Basophils Percent Auto 0.9 % (0-2); Eosinophils Absolute Auto 200 /uL (0-450); Eosinophils Percent Auto 2.5 % (2-4); Hematocrit 38.4 % (36-46); Hemoglobin 13.2 g/dL (12.0-16.0); Lymphocytes Absolute Auto 1400 /uL (1100-4500); Lymphocytes Percent Auto 22.5 % (25-40); Mean Corpuscular HGB Conc 34.4 % (30-36); Mean Corpuscular Hemoglobin 31.8 PG (26-34); Mean Corpuscular Volume 92.4 fL (80-100); Monocytes Absolute Auto 600 /uL (0-900); Monocytes Percent Auto 9.2 % (3-14); Neutrophils Absolute Auto 4200 /uL (1500-7000); Neutrophils Percent Auto 64.9 % (50-75); Platelet Count 329 X10^3/uL (150-400); Red Blood Cell Count 4.15 X10^6/uL (4.0-5.2); Red Cell Distribution Width 13.2 % (11.6-14.8); White Blood Cell Count 6.4 X10^3/uL (4.5-11.0)
[2019-10-02 08:06] LABS: Alanine Aminotransferase 16 IU/L (<35); Albumin 4.5 g/dL (3.5-5.0); Albumin Globulin Ratio 1.7 (1.0-2.8); Alkaline Phosphatase 36 U/L (38-126); Aspartate Aminotransferase 20 IU/L (14-36); BUN Creatinine Ratio 16.2 (6-22); Bilirubin Total 0.4 mg/dL (0.2-1.3); Blood Urea Nitrogen 11 mg/dL (7-17); Calcium 9.3 mg/dL (8.4-10.2); Carbon Dioxide 27 mmol/L (22-32); Chloride 103 mmol/L (98-107); Cholesterol 190 mg/dL (140-199); Estimated Glomerular Filt Rate > 60.0 mL/min (>60); Globulin 2.7 g/dL (1.7-4.1); Glucose 104 mg/dL (70-100); HDL Cholesterol 59 mg/dL (40-60); HEMOLYSIS < 15 (0-50); LDL Cholesterol Calculated 115 mg/dL (<100); Potassium 4.4 mmol/L (3.4-5.1); Sodium 137 mmol/L (137-145); Total Protein 7.2 g/dL (6.3-8.2); Triglycerides 78 mg/dL (35-150)
[2019-10-02 08:34] LABS: Thyroid Stimulating Hormone 3.25 uIU/mL (0.47-4.68)
== END ==
PROVIDERS: Family Provider Obstetrics & Gynecology; PCP Internal Medicine; Referring Provider Internal Medicine; Visit Provider Internal Medicine
DX: Z00.00 Encounter for general adult medical examination without abnormal findings (principal)
CPT/HCPCS: 36415; 80053; 80061; 84443; 85025

== ENCOUNTER → 2019-12-25 10:22 | Outpatient (CLI) | payer OTHER, SELFPAY ==
--- NOTE | 2019-12-25 10:40 | DI.MG.S_ITS ---
Patient Name: MACARIO CAIN date: 1980 Sex: F Attending Physician: Sarina Indications: Date: 12/25/2019 10:35 At the request of: SADIQ GOLDEN Procedure: MM screening mammo BI BILATERAL DIGITAL SCREENING MAMMOGRAM 3D/2D WITH CAD: 12/25/2019 CLINICAL: Baseline exam. Routine screening. Family history of breast cancer. No prior exams were available for comparison. The tissue of both breasts is heterogeneously dense. This may lower the sensitivity of mammography. Current study was also evaluated with a Computer Aided Detection (CAD) system. No significant masses, calcifications, or other findings are seen in either breast. IMPRESSION: NEGATIVE There is no mammographic evidence of malignancy. A 1 year screening mammogram is recommended. This exam was interpreted at Station ID: [id number]. NOTE: For mammograms, a report in lay terms will be sent to the patient. Approximately 15% of breast malignancies will not be visualized mammographically. In the management of a palpable breast mass, a negative mammogram must not discourage biopsy of a clinically suspicious lesion. Electronically Signed By: John hayward/yana:12/25/2019 11:40:33 letter sent: Normal Exam ACR BI-RADS Category 1: Negative 3341F
== END ==
PROVIDERS: Family Provider Obstetrics & Gynecology; PCP Internal Medicine; Referring Provider Internal Medicine; Visit Provider Internal Medicine
DX: Z12.31 Encounter for screening mammogram for malignant neoplasm of breast (principal); Z80.3 Family history of malignant neoplasm of breast
CPT/HCPCS: 77063; 77067

== ENCOUNTER → 2020-03-13 15:15 | Outpatient (CLI) | payer OTHER, SELFPAY ==
[2020-03-13 16:48] LABS: COVID19 -Nasal RAPID POSITIVE (Negative)
== END ==
PROVIDERS: Family Provider Obstetrics & Gynecology; PCP Internal Medicine; Visit Provider Physician Assistant
DX: R05 Cough (principal); R19.7 Diarrhea, unspecified; R51.9 Headache, unspecified; R53.83 Other fatigue
CPT/HCPCS: 87635

== ENCOUNTER → 2020-11-20 07:26 | Outpatient (CLI) | payer OTHER, SELFPAY ==
[2020-11-21 09:10] LABS: Alanine Aminotransferase 18 IU/L (<35); Albumin 4.1 g/dL (3.5-5.0); Albumin Globulin Ratio 1.5 (1.0-2.8); Alkaline Phosphatase 46 U/L (38-126); Aspartate Aminotransferase 24 IU/L (14-36); Bilirubin Total 0.3 mg/dL (0.2-1.3); Bilirubin Unconjugated 0.1 mg/dL (0.0-1.1); Cholesterol 240 mg/dL (140-199); Globulin 2.7 g/dL (1.7-4.1); HDL Cholesterol 47 mg/dL (40-60); HEMOLYSIS < 15 (0-50); LDL Cholesterol Calculated 153 mg/dL (<100); Total Protein 6.8 g/dL (6.3-8.2); Triglycerides 199 mg/dL (35-150)
== END ==
PROVIDERS: Family Provider Obstetrics & Gynecology; PCP Internal Medicine; Referring Provider Dermatology; Visit Provider Dermatology
DX: Z79.899 Other long term (current) drug therapy (principal)
CPT/HCPCS: 36415; 80061; 80076

== ENCOUNTER → 2021-04-24 10:07 | Outpatient (CLI) | payer OTHER, SELFPAY ==
--- NOTE | 2021-04-24 | DI.MG.S_ITS ---
BILATERAL DIGITAL SCREENING MAMMOGRAM 3D/2D WITH CAD: 04/24/2021 CLINICAL: Routine screening. Family history of breast cancer. Comparison is made to exam dated: 12/25/2019 [facility]. The tissue of both breasts is heterogeneously dense. This may lower the sensitivity of mammography. Current study was also evaluated with a Computer Aided Detection (CAD) system. No significant masses, calcifications, or other findings are seen in either breast. There has been no significant interval change. IMPRESSION: NEGATIVE There is no mammographic evidence of malignancy. A 1 year screening mammogram is recommended. This exam was interpreted at Station ID: [id number]. NOTE: For mammograms, a report in lay terms will be sent to the patient. Approximately 15% of breast malignancies will not be visualized mammographically. In the management of a palpable breast mass, a negative mammogram must not discourage biopsy of a clinically suspicious lesion. Electronically Signed By: Jeffy Caromna M.D., jr/yana:04/24/2021 10:50:46 letter sent: Normal Exam ACR BI-RADS Category 1: Negative 3341F
== END ==
PROVIDERS: Family Provider Obstetrics & Gynecology; PCP Internal Medicine; Referring Provider Internal Medicine; Visit Provider Internal Medicine
DX: Z12.31 Encounter for screening mammogram for malignant neoplasm of breast (principal); Z80.3 Family history of malignant neoplasm of breast
CPT/HCPCS: 77063; 77067

== ENCOUNTER → 2021-05-23 10:01 | Outpatient (CLI) | payer OTHER, SELFPAY ==
--- NOTE | 2021-05-23 | DI.RAD.S_ITS ---
PROCEDURE: XR LUMBAR SPINE 2-3V INDICATIONS: BACK PAIN TECHNIQUE: 2 views of the lumbar spine were acquired. COMPARISON: None. FINDINGS: There are 5 lok-cya-rehrrff lumbar type vertebral bodies. Trace levoscoliosis. No listhesis. Vertebral body heights maintained. No fracture identified. Mild degenerative changes from L3-L4 through L5-S1 manifesting as disc height loss with degenerative endplate change and facet hypertrophy. IMPRESSION: Lower lumbar spine degenerative changes. Dictated by: Jeffy Carmona M.D. on 05/23/2021 at 10:47 Approved by: Jeffy Carmona M.D. on 05/23/2021 at 10:49
[2021-05-23 11:32] LABS: Free T3, Triiodothyronine Free 3.37 pg/mL (2.77-5.27); Free T4, Direct Thyroxine 0.96 ng/dL (0.78-2.19)
[2021-05-23 11:46] LABS: Thyroid Stimulating Hormone 2.49 uIU/mL (0.47-4.68)
[2021-05-24 06:58] LABS: Thyroid Peroxidase Antibodies <8 IU/mL (0-34)
[2021-05-25 13:40] LABS: ANA Screen, IFA Negative (.)
== END ==
PROVIDERS: Family Provider Obstetrics & Gynecology; PCP Internal Medicine; Referring Provider Naturopath; Visit Provider Naturopath
DX: M47.816 Spondylosis without myelopathy or radiculopathy, lumbar region (principal); M47.817 Spondylosis without myelopathy or radiculopathy, lumbosacral region; M54.50 Low back pain, unspecified; E03.9 Hypothyroidism, unspecified; K59.04 Chronic idiopathic constipation
CPT/HCPCS: 36415; 72100; 84439; 84443; 84481; 86038; 86376

== ENCOUNTER → 2021-09-03 08:54 | Outpatient (CLI) | payer OTHER, SELFPAY ==
[2021-09-03 11:05] LABS: COVID19 -Nasal RAPID Negative (Negative)
== END ==
PROVIDERS: Family Provider Obstetrics & Gynecology; PCP Naturopath; Visit Provider Surgery
DX: Z20.822 Contact with and (suspected) exposure to COVID-19 (principal); Z01.812 Encounter for preprocedural laboratory examination
CPT/HCPCS: 87635; C9803

== ENCOUNTER 2021-09-04 11:37 | Day surgery (SDC) | payer OTHER, SELFPAY ==
[2021-09-04 12:06] VITALS: BP 117/72; PULSE 80; RESP 16; TEMP 36.8; O2SAT 99; BMI 34.3
[2021-09-04] MEDS: LACTATED RINGERS 1,000 ML 84 ML IV (12:06)
--- NOTE | 2021-09-04 13:06 | PM.HP.1 ---
History of Present Illness History of Present Illness Date Patient Seen: 09/04/21 Time Patient Seen: 13:06 Chief complaint: DX COLONOSCOPY Narrative: Faraz is here for her colonoscopy. See office note from July for details. Patient History Medical History Asthma 3 para 3 Hayfever Hidradenitis suppurativa Normal Papanicolaou smear Recurrent sinusitis Surgical History History of bilateral tubal ligation History of surgical removal of ganglion cyst Status post delivery Status post functional endoscopic sinus surgery (FESS) (2009) Family & Social History Family History Family/Other Multiple sclerosis Other Alcoholism Alzheimer's dementia Cancer Social History: household members spouse Tobacco & Substance use: Smoking Status Former smoker alcohol intake current alcohol intake frequency a few times a month Substance Use Type does not use Meds Home Medications and Allergies Home Medications Medication Instructions Recorded Confirmed Type bupropion HCl 100 mg tablet,12 hr 100 mg PO DAILY 08/18/21 09/04/21 History sustained-release (Wellbutrin SR) lamotrigine 150 mg tablet 150 mg PO DAILY 08/18/21 09/04/21 History magnesium glycinate 100 mg tablet 200 mg PO DAILY 08/18/21 09/04/21 History magnesium oxide 400 mg PO DAILY 08/18/21 09/04/21 History Allergies Allergy/AdvReac Type Severity Reaction Status Date / Time dextromethorphan Allergy Unknown HIVES Verified 09/04/21 12:02 [DEXTROMETHORPHAN] guaifenesin [GUAIFENESIN] Allergy Unknown HIVES Verified 09/04/21 12:02 Exam Vital Signs (past 8 hours): - 09/04/21 12:06 Temperature 98.2 F Pulse Rate 80 Respiratory Rate 16 Blood Pressure 117/72 Pulse Oximetry 99 Oxygen Delivery Method Room Air Const General: comfortable Resp Effort & Inspection: normal respiratory effort Assessment & Plan Assessment and plan (1) Rectal bleeding: Status: Acute Plan Recommended colonoscopy. She would like to proceed. COVID-19 COVID-19 status: Negative Result date/Date tested (Pos, Neg/Pending): 09/03/21 Time Spent With Patient Critical Care time: I spent a total of [] minutes of critical care time on this patient's care today; this time is exclusive of procedural time.
[2021-09-04] MEDS: fentaNYL 250 MCG/5 ML INJ 200 MCG IV (13:20)
[2021-09-04] MEDS: MIDAZOLAM 5 MG/5 ML VIAL 6 MG IV (13:20)
--- NOTE | 2021-09-04 13:48 | PM.OP.COLON ---
Operative Date/Time/Diagnoses Date of procedure: 09/04/21 Time of procedure: 13:48 Pre-op diagnosis: Rectal bleeding Post-op diagnosis: same Procedure & Clinicians Study performed: Colonoscopy Same procedure as scheduled: Yes Procedure Notes Procedure in detail: Surgeon: Tej Mathews MD Procedure: The patient was brought to the endoscopy suite, placed in left lateral decubitus position. The patient was connected to monitoring devices. A time-out was performed. Sedation was administered. Once the patient was adequately sedated, a digital rectal exam was performed and was normal. The scope was then inserted and advanced to the cecum where the appendiceal orifice was identified and photographed. The scope was then slowly withdrawn over greater than 6 minutes. Mucosa was thoroughly inspected. There were no abnormalities noted. The scope was retroflexed in the rectum. There were mild internal hemorrhoids. The scope was straightened and removed. The patient was awakened and brought to recovery. Versed: 6 mg Fentanyl: 200 mcg EBL: 0 Findings: Mild internal hemorrhoids but otherwise normal colon Scope withdrawal time: 11 Sedation minutes: 26 Post-procedure Recommendations: Colonoscopy in 10 years Disposition: PACU
[2021-09-04 13:51] VITALS: BP 106/68; PULSE 76; RESP 16; TEMP 36.4; O2SAT 98
[2021-09-04 13:57] VITALS: BP 106/68; PULSE 71; RESP 13; O2SAT 100
[2021-09-04 14:10] VITALS: BP 120/70; PULSE 60; RESP 16; TEMP 36.7; O2SAT 98
[2021-09-04 14:28] VITALS: BP 127/76; PULSE 73; RESP 16; TEMP 36.8; O2SAT 100
== END 2021-09-04 14:32 | disposition home or self-care (01) ==
PROVIDERS: Family Provider Obstetrics & Gynecology; PCP Naturopath; Referring Provider Surgery; Visit Provider Surgery
PROC: 0DJD8ZZ Inspection of Lower Intestinal Tract, Via Natural or Artificial Opening Endoscopic (ICD-10-PCS; CPT 45378; principal; 2021-09-04 13:00)
DX: K62.5 Hemorrhage of anus and rectum (principal); K64.8 Other hemorrhoids
CPT/HCPCS: 45378; 99152; J2250; J3010

== ENCOUNTER → 2021-10-03 11:07 | Outpatient (CLI) | payer OTHER, SELFPAY ==
--- NOTE | 2021-10-03 11:09 | DI.CT.S_ITS ---
PROCEDURE: CT ABDOMEN PELVIS W CON INDICATIONS: Rule out hernia TECHNIQUE: After the administration of oral and IV contrast, axial sections were acquired from the lung bases to the pubic symphysis. Coronal and sagittal reformats were performed. For radiation dose reduction, the following was used: automated exposure control, adjustment of mA and/or kV according to patient size. COMPARISON: None. FINDINGS: Image quality: Excellent. Lung bases: Unremarkable. Heart: No significant findings. ABDOMEN: Liver: Liver is normal in size. Hepatic steatosis is seen, no discrete hepatic lesion. Gallbladder: Gallbladder is within normal limits. Biliary ducts: Unremarkable. Pancreas: Unremarkable. Spleen: Unremarkable. Adrenal Glands: Unremarkable. Kidneys and Ureters: Unremarkable. Stomach and Bowel: Stomach, small bowel loops, and colon are unremarkable. Mild sigmoid diverticulosis is seen, no colonic wall thickening or mesenteric fat stranding. Appendix is visualized and is within normal limits. Peritoneum: No abnormal intraperitoneal fluid. No free air. Ventral Wall: Small umbilical hernia is seen containing fat only. Abdominal Nodes: No retroperitoneal or mesenteric adenopathy by size criteria. Vessels: Aorta and inferior vena cava are normal in size. PELVIS: Pelvic Organs: Unremarkable. Bladder: Unremarkable. Pelvic Nodes: No enlarged lymph nodes. Miscellaneous: Small bilateral inguinal hernia are seen containing fat only . Bones: No suspicious bony lesion. No acute vertebral body compression fracture. IMPRESSION: 1. Small bilateral inguinal hernia containing fat only. Small umbilical hernia containing fat only. 2. No bowel obstruction or abnormal bowel wall thickening. Normal appendix. Sigmoid diverticulosis without evidence of acute diverticulitis. No free fluid or free air. 3. Mild hepatic steatosis. No discrete hepatic lesion. Dictated by: Solitario Ceja M.D. on 10/03/2021 at 13:10 Approved by: Solitario Ceja M.D. on 10/03/2021 at 13:13
== END ==
PROVIDERS: Family Provider Obstetrics & Gynecology; PCP Internal Medicine; Referring Provider Surgery; Visit Provider Surgery
DX: K42.9 Umbilical hernia without obstruction or gangrene (principal); K40.20 Bilateral inguinal hernia, without obstruction or gangrene, not specified as recurrent; K76.0 Fatty (change of) liver, not elsewhere classified; K57.30 Diverticulosis of large intestine without perforation or abscess without bleeding; R10.84 Generalized abdominal pain
CPT/HCPCS: 74177; Q9967

== ENCOUNTER → 2021-11-04 09:12 | Outpatient (CLI) | payer OTHER, SELFPAY ==
[2021-11-04 12:27] LABS: COVID19 -Nasal RAPID Negative (Negative)
== END ==
PROVIDERS: Family Provider Obstetrics & Gynecology; PCP Internal Medicine; Visit Provider Surgery
DX: Z20.822 Contact with and (suspected) exposure to COVID-19 (principal); Z01.812 Encounter for preprocedural laboratory examination
CPT/HCPCS: 87635; C9803

== ENCOUNTER 2021-11-05 11:27 | Day surgery (SDC) | payer OTHER, SELFPAY ==
[2021-11-03 08:24] VITALS: BMI 34.3
[2021-11-05] VITALS (15 sets, daily range): BP systolic 97–155; BP diastolic 51–83; PULSE 58–100; RESP 13–22; TEMP 35.9–37; O2SAT 93–98; BMI 34.3
[2021-11-05] MEDS: LACTATED RINGERS 1,000 ML 42 ML IV ×2 (12:19→16:22)
--- NOTE | 2021-11-05 14:47 | PM.PREOP ---
Pre-operative Note COVID-19 COVID-19 status: Negative Result date/Date tested (Pos, Neg/Pending): 11/04/21 Interval Note History & Physical reviewed/Exam performed by Physician: Yes Changes to H&P: No ASA Class (for procedural sedation): II
[2021-11-05] MEDS: CEFAZOLIN 2 GM/20 ML SYRINGE IV (15:36)
--- NOTE | 2021-11-05 15:47 | SUR.OPER ---
Addendum entered by Violet Muller R.N. 11/05/21 16:00: Left arm tucked with gelpad Original Note: Supine on padded OR bed, head on pillow, left arm secured on padded arm boards at <90 degrees abduction, right arm padded and tucked at side, legs uncrossed, safety belt at thigh, tape over blanket over lower legs.
[2021-11-05] MEDS: LIDOCAINE 1% W/EPI 20 ML INJ (16:19)
[2021-11-05] MEDS: BUPIVACAINE 0.5% (PF) VIAL 30 ML INJ (16:19)
[2021-11-05] MEDS: ONDANSETRON 4 MG/2 ML INJ IV (17:12)
--- NOTE | 2021-11-05 17:12 | P.OP_ITS ---
Operative Date/Time/Diagnoses Date of procedure: 11/05/21 Time of procedure: 17:12 Pre-op diagnosis: Left inguinal hernia Post-op diagnosis: same Procedure & Clinicians Procedure: Laparoscopic left inguinal hernia repair with mesh Same procedure as scheduled: Yes Surgeon: Tej Mathews Anesthesia Type: General Operative Notes Procedure in detail: The patient was given preoperative antibiotics. The patient was brought to the operating room, placed on the table in the supine position with the arms tucked and general anesthesia was induced. The abdomen was prepped and draped in the usual fashion. A time-out was performed. A 1 cm curvilinear infraumbilical incision was created and dissection was carried down to the base of the umbilical stalk. The umbilical stalk was grasped with a Jason clamp to elevate the abdominal wall. The fascia was scored transversely with cautery. A Peon clamp was used to carlin the peritoneum. The Guy port was placed and the abdomen was insufflated to 15 mmHg. The camera was inserted, there was no evidence of any injury from the entry. There was no peritoneal defect noted on either side. 5 mm ports were placed under direct vision in the mid left and mid right abdomen. The patient was positioned in steep Trendelenburg. We created left peritoneal flap. The peritoneum was dissected off the round ligament and the Max's ligament was exposed. There appeared to be a shallow fat- containing direct defect. There was no indirect defect or femoral defect. A a medium left Bard mesh was brought in and placed over the defect with the medial edge against Max's ligament. We then closed the peritoneal flap with a running 3-0 barbed suture. We took one last look around the abdomen and saw no other abnormalities. The suture was removed and accounted for. The 5 mm ports were removed under direct vision. The abdomen was desufflated. The Guy port was removed. Additional local was injected into the fascia and the infraumbilical fascial incision was closed with 3 interrupted 0 Vicryl sutures. The skin incisions were closed with 4 Monocryl, Steri-Strips and Band-Aids. Post-operative Condition: stable Disposition: PACU
--- NOTE | 2021-11-05 17:30 | SUR.PHASEI ---
arouses easily to voice, small emesis prior to zofran. States that she is still nauseated (without any further emesis). Order being entered by anesthesia
[2021-11-05] MEDS: DEXAMETHASONE 10 MG/ML VIAL IV (17:40)
[2021-11-05] MEDS: fentaNYL 100 MCG/2 ML INJ IV ×3 (17:51→18:13)
[2021-11-05] MEDS: METOCLOPRAMIDE 10 MG/2 ML INJ IV (18:06)
--- NOTE | 2021-11-05 18:15 | SUR.PHASEI ---
states that nausea is 'better', almost resolved. (had second small yellow emesis). Continue to manage pain with IV medication until able to tolerate PO meds. Skin warm and dry
[2021-11-05] MEDS: OXYCODONE/ACETAMINOPHEN 5/325 TABLET 1 TAB PO (18:29)
== END 2021-11-05 19:16 | disposition home or self-care (01) ==
PROVIDERS: Family Provider Obstetrics & Gynecology; PCP Internal Medicine; Referring Provider Surgery; Visit Provider Surgery
PROC: 0YQ64ZZ Repair Left Inguinal Region, Percutaneous Endoscopic Approach (ICD-10-PCS; CPT 49650; principal; 2021-11-05 12:45)
DX: K40.20 Bilateral inguinal hernia, without obstruction or gangrene, not specified as recurrent (principal); K42.9 Umbilical hernia without obstruction or gangrene; F43.10 Post-traumatic stress disorder, unspecified; F32.A Depression, unspecified; J45.909 Unspecified asthma, uncomplicated
CPT/HCPCS: 49650; 00840; J0690; J1100; J2250; J2405; J2704; J2765; J3010

== ENCOUNTER → 2021-11-11 16:30 | Outpatient (ROUT) | payer OTHER, SELFPAY | PROVIDERS: Family Provider Obstetrics & Gynecology; PCP Internal Medicine; Visit Provider Dermatology | DX: Z48.817 Encounter for surgical aftercare following surgery on the skin and subcutaneous tissue (principal) | CPT/HCPCS: 87070; 87075; 87205 ==

== ENCOUNTER → 2022-02-11 11:40 | Outpatient (CLI) | payer OTHER, SELFPAY ==
[2022-02-11 12:38] LABS: Add Manual Diff / Slide Review NO; Basophils Absolute Auto 100 /uL (0-100); Basophils Percent Auto 0.9 % (0-2); Eosinophils Absolute Auto 300 /uL (0-450); Eosinophils Percent Auto 4.1 % (2-4); Hematocrit 37.4 % (36-46); Hemoglobin 12.4 g/dL (12.0-16.0); Lymphocytes Absolute Auto 1900 /uL (1100-4500); Lymphocytes Percent Auto 27.7 % (25-40); Mean Corpuscular HGB Conc 33.3 % (30-36); Mean Corpuscular Hemoglobin 30.1 PG (26-34); Mean Corpuscular Volume 90.5 fL (80-100); Monocytes Absolute Auto 600 /uL (0-900); Monocytes Percent Auto 8.9 % (3-14); Neutrophils Absolute Auto 4000 /uL (1500-7000); Neutrophils Percent Auto 58.4 % (50-75); Platelet Count 303 X10^3/uL (150-400); Red Blood Cell Count 4.13 X10^6/uL (4.0-5.2); Red Cell Distribution Width 13.6 % (11.6-14.8); White Blood Cell Count 6.8 X10^3/uL (4.5-11.0)
[2022-02-11 13:27] LABS: Alanine Aminotransferase 24 IU/L (<35); Albumin 4.3 g/dL (3.5-5.0); Albumin Globulin Ratio 1.5 (1.0-2.8); Alkaline Phosphatase 59 U/L (38-126); Aspartate Aminotransferase 23 IU/L (14-36); BUN Creatinine Ratio 16.7 (6-22); Bilirubin Total 0.4 mg/dL (0.2-1.3); Blood Urea Nitrogen 11 mg/dL (7-17); Calcium 8.7 mg/dL (8.4-10.2); Carbon Dioxide 27 mmol/L (22-32); Chloride 103 mmol/L (98-107); Cholesterol 189 mg/dL (140-199); Estimated Glomerular Filt Rate > 60 mL/min (>60); Globulin 2.8 g/dL (1.7-4.1); Glucose 92 mg/dL (70-100); HDL Cholesterol 52 mg/dL (40-60); HEMOLYSIS < 15 (0-50); LDL Cholesterol Calculated 124 mg/dL (<100); Potassium 3.5 mmol/L (3.4-5.1); Sodium 137 mmol/L (137-145); Total Protein 7.1 g/dL (6.3-8.2); Triglycerides 65 mg/dL (35-150)
[2022-02-11 17:30] LABS: Thyroid Stimulating Hormone 1.48 uIU/mL (0.47-4.68)
== END ==
PROVIDERS: Family Provider Obstetrics & Gynecology; PCP Internal Medicine; Referring Provider Psychiatry & Neurology Psychiatry; Visit Provider Psychiatry & Neurology Psychiatry
DX: Z79.899 Other long term (current) drug therapy (principal); R53.83 Other fatigue; E78.5 Hyperlipidemia, unspecified
CPT/HCPCS: 36415; 80053; 80061; 84443; 85025

== ENCOUNTER → 2022-06-04 13:21 | Outpatient (CLI) | payer OTHER, SELFPAY ==
--- NOTE | 2022-06-04 | DI.MG.S_ITS ---
BILATERAL DIGITAL SCREENING MAMMOGRAM 3D/2D WITH CAD: 06/04/2022 CLINICAL: Routine screening. Family history of breast cancer. Comparison is made to exams dated: 04/24/2021 mammogram and 12/25/2019 mammogram - [facility]. Both breasts are heterogeneously dense, which may obscure small masses (category c / 51-75% glandular tissue). Current study was also evaluated with a Computer Aided Detection (CAD) system. No significant masses, calcifications, or other findings are seen in either breast. There has been no significant interval change. IMPRESSION: NEGATIVE There is no mammographic evidence of malignancy. A 1 year screening mammogram is recommended. Based on the Tyrer Cuzick model (a risk assessment model) the patient's lifetime risk is 14.7% and her 10 year risk is 2.2%. According to the ACR, ACS, and NCCN guidelines, an annual breast MRI exam along with mammogram is recommended if the patient's lifetime risk is 20% or greater. This exam was interpreted at Station ID: [id number]. NOTE: For mammograms, a report in lay terms will be sent to the patient. Approximately 15% of breast malignancies will not be visualized mammographically. In the management of a palpable breast mass, a negative mammogram must not discourage biopsy of a clinically suspicious lesion. Electronically Signed By: Nuria sierra/yana:06/04/2022 17:30:26 copy to: FATOU GAMLBE, [facility] letter sent: Normal Exam ACR BI-RADS Category 1: Negative 3341F
== END ==
PROVIDERS: Family Provider Obstetrics & Gynecology; PCP Internal Medicine; Referring Provider Internal Medicine; Visit Provider Internal Medicine
DX: Z12.31 Encounter for screening mammogram for malignant neoplasm of breast (principal); Z80.3 Family history of malignant neoplasm of breast
CPT/HCPCS: 77063; 77067

== ENCOUNTER 2022-06-28 11:01 | Inpatient (IN) | payer OTHER, SELFPAY ==
[2022-06-28] VITALS (34 sets, daily range): BP systolic 103–141; BP diastolic 56–90; PULSE 70–129; RESP 12–24; TEMP 36.7–37.3; O2SAT 85–97; BMI 32.8; BMI 33.0
--- NOTE | 2022-06-28 11:13 | DI.RAD.S_ITS ---
PROCEDURE: XR CHEST 1V INDICATIONS: short of breath TECHNIQUE: One view of the chest was acquired. COMPARISON: [facility], , CHEST 2 VIEW, 06/07/2013, 14:01. FINDINGS: Surgical changes and devices: None. Lungs and pleura: Lungs are clear. No pleural effusions or pneumothorax. Mediastinum: Mediastinal contours appear normal. Heart size is normal. Bones and chest wall: No suspicious bony lesions. Overlying soft tissues appear unremarkable. IMPRESSION: No acute cardiopulmonary abnormality. Dictated by: Uli Nelson M.D. on 06/28/2022 at 11:12 Approved by: Uli Nelson M.D. on 06/28/2022 at 11:12
--- NOTE | 2022-06-28 11:13 | DI.CT.S_ITS ---
PROCEDURE: CT ANGIO CHEST PE PROTOCOL INDICATIONS: hypoxia recent surgery TECHNIQUE: After the administration of intravenous contrast, 2 mm thick sections acquired from the pulmonary apices to the posterior costophrenic angles. 3-dimensional maximum intensity projection (MIP) coronal and sagittal reformats were then acquired through the thorax. For radiation dose reduction, the following was used: automated exposure control, adjustment of mA and/or kV according to patient size. COMPARISON: None. FINDINGS: Image quality: Excellent. Pulmonary arteries: There are subsegmental pulmonary emboli in the right lower lobe, right middle lobe, right upper lobe, and left lower lobe. Lungs and pleura: Lungs are clear. No pleural effusions or pneumothorax. Central and peripheral airways are patent. Mediastinum: RV to LV ratio is 1.5. Heart size is normal, without pericardial effusion. No mediastinal or hilar adenopathy. Thoracic aorta is normal in caliber and enhancement. Esophagus is normal in caliber, without hiatal hernia. Bones and chest wall: No suspicious bony lesions. Ribs and thoracic spine appear intact throughout. Thyroid gland is normal. No axillary or supraclavicular adenopathy. Abdomen: Visualized upper abdominal solid organs appear normal in the early arterial phase of enhancement. IMPRESSION: 1. Multilobar subsegmental pulmonary emboli. 2. RV to LV ratio consistent with right ventricular strain. Findings were discussed with Dr. Laughlin at 12:48. Dictated by: Uli Nelson M.D. on 06/28/2022 at 12:43 Approved by: Uli Nelson M.D. on 06/28/2022 at 12:49
[2022-06-28 11:35] LABS: Add Manual Diff / Slide Review NO; Basophils Absolute Auto 100 /uL (0-100); Basophils Percent Auto 0.6 % (0-2); Eosinophils Absolute Auto 100 /uL (0-450); Eosinophils Percent Auto 1.2 % (2-4); Hematocrit 36.5 % (36-46); Lymphocytes Absolute Auto 1200 /uL (1100-4500); Lymphocytes Percent Auto 10.6 % (25-40); Mean Corpuscular HGB Conc 32.8 % (30-36); Mean Corpuscular Hemoglobin 29.1 PG (26-34); Mean Corpuscular Volume 88.8 fL (80-100); Monocytes Absolute Auto 600 /uL (0-900); Monocytes Percent Auto 5.7 % (3-14); Neutrophils Absolute Auto 9400 /uL (1500-7000); Neutrophils Percent Auto 81.9 % (50-75); Platelet Count 352 X10^3/uL (150-400); Red Blood Cell Count 4.11 X10^6/uL (4.0-5.2); Red Cell Distribution Width 13.9 % (11.6-14.8); White Blood Cell Count 11.4 X10^3/uL (4.5-11.0)
[2022-06-28 11:40] LABS: INR 1.2 (0.9-1.3); Prothrombin Time 13.2 SECONDS (10.1-12.7)
[2022-06-28 11:42] LABS: PTT Partial Thromboplastin Tim 32 SECONDS (26-36)
--- NOTE | 2022-06-28 11:43 | ED.SOB ---
HPI - SOB/Dyspnea General Chief Complaint: Shortness of Breath/Dyspnea Stated Complaint: SHORTNESS OF BREATH /HEART RATE HIGH/POST SURGERY Time Seen by Provider: 06/28/22 11:13 Source: patient Mode of arrival: Ambulatory Limitations: no limitations History of Present Illness HPI Narrative: Patient is a 41-year-old female history of depression presenting today after elective breast reduction and liposuction and increasing shortness of breath. Her procedure was says as an outpatient 4 days ago. She is been doing well postoperatively to her last dose of oxycodone yesterday she is on gabapentin and meloxicam she feels like it he is controlling her pain. She is not had any fever or chills. But today suddenly when she got up this morning feeling significantly short of breath. She denies any chest pain she just feels like she can not quite catch her breath. She reports that after surgery she was having some upper respiratory like symptoms she was given an albuterol inhaler coughing up some phlegm. She again was doing okay until this morning when she really can not catch her breath. She was denies any orthopnea about was instructed postoperatively to sleep at a 30 degree angle. She is short of breath at rest but O2 is 94-95% she is tachycardic with heart rate in the 115. Related Data Home Medications Medication Instructions Recorded Confirmed bupropion HCl 100 mg tablet,12 hr 100 mg PO DAILY 08/18/21 06/28/22 sustained-release (Wellbutrin SR) lamotrigine 150 mg tablet 150 mg PO DAILY 08/18/21 06/28/22 propranolol 40 mg tablet 40 mg PRN PRN Anxiety 11/05/21 06/28/22 sertraline 25 mg tablet 50 mg PO DAILY 11/05/21 06/28/22 albuterol sulfate 90 mcg/actuation 1 puff inhalation Q6HR PRN 06/28/22 06/28/22 aerosol inhaler shortness of breath gabapentin 300 mg capsule 300 mg PO TID PRN Pain (Scale 06/28/22 06/28/22 Score 1-3) meloxicam 7.5 mg tablet 7.5 mg PO QAM 06/28/22 06/28/22 ondansetron 8 mg disintegrating 8 mg PO Q8HR PRN nausea 06/28/22 06/28/22 tablet Allergies Allergy/AdvReac Type Severity Reaction Status Date / Time dextromethorphan Allergy Unknown HIVES Verified 11/26/21 09:37 [DEXTROMETHORPHAN] guaifenesin [GUAIFENESIN] Allergy Unknown HIVES Verified 11/26/21 09:37 latex Allergy Unknown Rash Verified 11/26/21 09:37 adhesive AdvReac Unknown Verified 11/26/21 09:37 Review of Systems Review of Systems ROS Unobtainable: All systems reviewed & are unremarkable except as noted in HPI and below Patient History Medical History Asthma 3 para 3 Hayfever Hidradenitis suppurativa Normal Papanicolaou smear Recurrent sinusitis Surgical History History of bilateral tubal ligation History of surgical removal of ganglion cyst Hx of colonoscopy (09/04/21) Status post delivery Status post functional endoscopic sinus surgery (FESS) (2009) Family History Family/Other Multiple sclerosis Other Alcoholism Alzheimer's dementia Cancer Social History household members: spouse and children Smoking Status: Former smoker alcohol intake: current Smoking Status: Former smoker alcohol intake frequency: a few times a month Substance Use Type: does not use Exam Initial Vital Signs Initial Vital Signs: Vital Signs Temperature 99.1 F 06/28/22 11:01 Pulse Rate 129 H 06/28/22 11:01 Respiratory Rate 24 06/28/22 11:01 Blood Pressure 141/72 H 06/28/22 11:01 Pulse Oximetry 91 06/28/22 11:01 Oxygen Delivery Method Room Air 06/28/22 11:01 GENERAL: Alert pleasant 41-year-old female appears uncomfortable and in no acute distress. HEENT: Head atraumatic,EOMI, pupils reactive, face symmetric, moist mucous membranes CARDIOVASCULAR: Tachycardic regular RESPIRATORY: Breath sounds equal bilaterally, no wheezes rales or rhonchi. ABDOMEN: Soft, nontender. Normoactive bowel sounds all 4 quadrants. No guarding or rebound. EXTREMITIES: Normal range of motion, no clubbing or edema. Neurovascularly intact NEUROLOGICAL: Alert and oriented x4.Normal gait and speech. SKIN: Warm, dry, no laceration, no petechiae, no rashes or lesions. Course Orders Ordered: ED Orders 06/28/22 11:24 Complete Blood Count AUTO DIFF Stat Comprehensive Metabolic Panel Stat Lipase Stat NT-proBNP (BNP-Adult 18+) Stat PTT Partial Thromboplastin Matt Stat Test Serum,Qual Stat Prothrombin Time INR Stat Troponin & CK Cardiac Panel Stat 06/28/22 11:37 Urine Culture Stat Urine Microscopic Stat 06/28/22 12:00 Covid-19 + FLU A/B + RSV - PCR Stat 06/28/22 13:20 Troponin & CK Cardiac Panel Stat 06/28/22 14:05 EKG-12 Lead Routine 06/28/22 18:15 PTT Partial Thromboplastin Matt Q6H 06/29/22 00:15 PTT Partial Thromboplastin Matt Q6H 06/29/22 06:15 PTT Partial Thromboplastin Matt Q6H Gabapentin (Gabapentin 300 Mg Capsule) 300 mg PO TID PRN PRN Reason: Pain, Mild (1-3) Last Admin: 06/28/22 19:59 Dose: 300 mg Documented By: SOREN Heparin Sodium/Dextrose (Heparin Drip) 25,000 unit in 500 mls @ 33.148 mls/hr IV CONT JIMMY; Protocol Last Titration: 06/28/22 19:31 Dose: 16 units/kg/hr, 29.465 mls/hr Documented By: Admin: 06/28/22 12:31 Dose: 18 units/kg/hr, 33.148 mls/hr Documented By: SHELLIE Lorazepam (Lorazepam 0.5 Mg Tablet) 0.5 mg PO Q4HR PRN PRN Reason: Anxiety Meloxicam (Meloxicam 7.5 Mg Tablet) 7.5 mg PO 0800 JIMMY Ondansetron HCl (Ondansetron 4 Mg Odt) 4 mg SL Q4HR PRN PRN Reason: Nausea Polyethylene Glycol (Polyethylene Glycol 3350 17 Gm Powd.Pack) 17 gm PO DAILY JIMMY Last Admin: 06/28/22 18:13 Dose: 17 gm Documented By: BIBI Sertraline HCl (Sertraline 50 Mg Tablet) 50 mg PO BEDTIME JIMMY Discontinued Medications Acetaminophen (Acetaminophen 325 Mg Tablet) 975 mg PO NOW ONE Stop: 06/28/22 14:38 Last Admin: 06/28/22 14:44 Dose: 975 mg Documented By: LONA Gabapentin (Gabapentin 300 Mg Capsule) 900 mg PO NOW ONE Stop: 06/28/22 14:38 Last Admin: 06/28/22 14:45 Dose: 900 mg Documented By: LONA Heparin Sodium (Porcine) (Heparin 5,000 Unit/Ml Vial) 7,400 unit 80 unit/kg (7400 unit) IV NOW ONE Stop: 06/28/22 12:10 Last Admin: 06/28/22 12:29 Dose: 7,400 unit Documented By: SHELLIE Vital Signs Vital signs: Vital Signs - 8 hr 06/28/22 13:11 06/28/22 13:30 06/28/22 13:39 Pulse Rate 110 H 111 H Respiratory Rate 16 20 Blood Pressure 103/56 L Pulse Oximetry Oxygen Delivery Method 06/28/22 13:39 06/28/22 14:00 06/28/22 14:00 Pulse Rate 106 H 107 H Respiratory Rate 18 12 Blood Pressure 110/67 Pulse Oximetry 95 95 Oxygen Delivery Method 06/28/22 14:30 06/28/22 14:30 Pulse Rate 104 H Respiratory Rate 17 Blood Pressure 119/67 Pulse Oximetry 94 Oxygen Delivery Method Room Air MDM - SOB/Dyspnea Lab Data 06/28/22 11:24 06/28/22 11:24 Labs: Lab Results 06/28/22 06/28/22 06/28/22 Range/Units 11:24 11:24 11:24 WBC 11.4 H (4.5-11.0) X10^3/uL RBC 4.11 (4.0-5.2) X10^6/uL Hgb 12.0 (12.0-16.0) g/dL Hct 36.5 (36-46) % MCV 88.8 (80-100) fL MCH 29.1 (26-34) PG MCHC 32.8 (30-36) % RDW 13.9 (11.6-14.8) % Plt Count 352 (150-400) X10^3/uL Neut % (Auto) 81.9 H (50-75) % Lymph % (Auto) 10.6 L (25-40) % [place] % (Auto) 5.7 (3-14) % Eos % (Auto) 1.2 L (2-4) % Baso % (Auto) 0.6 (0-2) % Neut # (Auto) 9400 H (0859-0617) /uL Lymph # (Auto) 1200 (8642-2577) /uL [place] # (Auto) 600 (0-900) /uL Eos # (Auto) 100 (0-450) /uL Baso # (Auto) 100 (0-100) /uL PT 13.2 H (10.1-12.7) SECONDS INR 1.2 (0.9-1.3) APTT 32 (26-36) SECONDS Sodium 137 (137-145) mmol/L Potassium 3.7 (3.4-5.1) mmol/L Chloride 101 (98-107) mmol/L Carbon Dioxide 26 (22-32) mmol/L BUN 10 (7-17) mg/dL Creatinine 0.57 (0.52-1.04) mg/dL Estimated GFR > 60 (>60) mL/min BUN/Creatinine Ratio 17.5 (6-22) Glucose 106 H (70-100) mg/dL Calcium 8.7 (8.4-10.2) mg/dL Total Bilirubin 0.6 (0.2-1.3) mg/dL AST 37 H (14-36) IU/L ALT 36 H (<35) IU/L Alkaline Phosphatase 75 (38-126) U/L Total Creatine Kinase 239 H (30-135) U/L CK-MB (CK-2) 2.17 (<2.37) ng/mL CK-MB (CK-2) Rel Index 0.9 L (1.5-5.0) % Troponin I 0.626 H* (0.01-0.034) ng/mL NT-Pro-B Natriuret Pep (<125) pg/mL Total Protein 7.3 (6.3-8.2) g/dL Albumin 4.2 (3.5-5.0) g/dL Globulin 3.1 (1.7-4.1) g/dL Albumin/Globulin Ratio 1.4 (1.0-2.8) Lipase 60 (23-300) U/L Serum , Qual (Negative) Urine RBC (0-5/HPF) Urine WBC (0-5/HPF) Ur Squamous Epith Cells (0-5/HPF) Urine Bacteria (None) SARS-CoV-2 (PCR) (Negative) Influenza A (RT-PCR) (NEGATIVE) Influenza B (RT-PCR) (NEGATIVE) RSV (PCR) (Negative) 06/28/22 06/28/22 06/28/22 Range/Units 11:24 11:24 11:37 WBC (4.5-11.0) X10^3/uL RBC (4.0-5.2) X10^6/uL Hgb (12.0-16.0) g/dL Hct (36-46) % MCV (80-100) fL MCH (26-34) PG MCHC (30-36) % RDW (11.6-14.8) % Plt Count (150-400) X10^3/uL Neut % (Auto) (50-75) % Lymph % (Auto) (25-40) % [place] % (Auto) (3-14) % Eos % (Auto) (2-4) % Baso % (Auto) (0-2) % Neut # (Auto) (3034-4585) /uL Lymph # (Auto) (0778-5189) /uL [place] # (Auto) (0-900) /uL Eos # (Auto) (0-450) /uL Baso # (Auto) (0-100) /uL PT (10.1-12.7) SECONDS INR (0.9-1.3) APTT (26-36) SECONDS Sodium (137-145) mmol/L Potassium (3.4-5.1) mmol/L Chloride (98-107) mmol/L Carbon Dioxide (22-32) mmol/L BUN (7-17) mg/dL Creatinine (0.52-1.04) mg/dL Estimated GFR (>60) mL/min BUN/Creatinine Ratio (6-22) Glucose (70-100) mg/dL Calcium (8.4-10.2) mg/dL Total Bilirubin (0.2-1.3) mg/dL AST (14-36) IU/L ALT (<35) IU/L Alkaline Phosphatase (38-126) U/L Total Creatine Kinase (30-135) U/L CK-MB (CK-2) (<2.37) ng/mL CK-MB (CK-2) Rel Index (1.5-5.0) % Troponin I (0.01-0.034) ng/mL NT-Pro-B Natriuret Pep 341 H (<125) pg/mL Total Protein (6.3-8.2) g/dL Albumin (3.5-5.0) g/dL Globulin (1.7-4.1) g/dL Albumin/Globulin Ratio (1.0-2.8) Lipase (23-300) U/L Serum , Qual Negative (Negative) Urine RBC 1-5/hpf (0-5/HPF) Urine WBC None seen (0-5/HPF) Ur Squamous Epith Cells 10-30 /hpf H (0-5/HPF) Urine Bacteria Few (2-10) H (None) SARS-CoV-2 (PCR) (Negative) Influenza A (RT-PCR) (NEGATIVE) Influenza B (RT-PCR) (NEGATIVE) RSV (PCR) (Negative) 06/28/22 06/28/22 06/28/22 Range/Units 12:00 12:35 13:20 WBC (4.5-11.0) X10^3/uL RBC (4.0-5.2) X10^6/uL Hgb (12.0-16.0) g/dL Hct (36-46) % MCV (80-100) fL MCH (26-34) PG MCHC (30-36) % RDW (11.6-14.8) % Plt Count (150-400) X10^3/uL Neut % (Auto) (50-75) % Lymph % (Auto) (25-40) % [place] % (Auto) (3-14) % Eos % (Auto) (2-4) % Baso % (Auto) (0-2) % Neut # (Auto) (7733-9396) /uL Lymph # (Auto) (4993-5684) /uL [place] # (Auto) (0-900) /uL Eos # (Auto) (0-450) /uL Baso # (Auto) (0-100) /uL PT (10.1-12.7) SECONDS INR (0.9-1.3) APTT Cancelled (26-36) SECONDS Sodium (137-145) mmol/L Potassium (3.4-5.1) mmol/L Chloride (98-107) mmol/L Carbon Dioxide (22-32) mmol/L BUN (7-17) mg/dL Creatinine (0.52-1.04) mg/dL Estimated GFR (>60) mL/min BUN/Creatinine Ratio (6-22) Glucose (70-100) mg/dL Calcium (8.4-10.2) mg/dL Total Bilirubin (0.2-1.3) mg/dL AST (14-36) IU/L ALT (<35) IU/L Alkaline Phosphatase (38-126) U/L Total Creatine Kinase 164 H (30-135) U/L CK-MB (CK-2) 1.85 (<2.37) ng/mL CK-MB (CK-2) Rel Index 1.1 L (1.5-5.0) % Troponin I 0.701 H* (0.01-0.034) ng/mL NT-Pro-B Natriuret Pep (<125) pg/mL Total Protein (6.3-8.2) g/dL Albumin (3.5-5.0) g/dL Globulin (1.7-4.1) g/dL Albumin/Globulin Ratio (1.0-2.8) Lipase (23-300) U/L Serum , Qual (Negative) Urine RBC (0-5/HPF) Urine WBC (0-5/HPF) Ur Squamous Epith Cells (0-5/HPF) Urine Bacteria (None) SARS-CoV-2 (PCR) Negative (Negative) Influenza A (RT-PCR) Flu a negative (NEGATIVE) Influenza B (RT-PCR) Flu b negative (NEGATIVE) RSV (PCR) Negative (Negative) Point of Care Testing Test Results Negative Urine Dip Bedside Urine Glucose Negative Bedside Urine Bilirubin - Negative Bedside Urine Ketone - Negative Urine Specific [place] 1.020 Bedside Urine Occult Blood +++ Bedside Urine pH 6 Bedside Urine Protein - Negative Bedside Urine Urobilinogen - Negative Bedside Urine Nitrite - Negative Bedside Urine Leukocytes - Negative Esterase Imaging Data Chest x-ray: Radiologist's Impression: PROCEDURE:? XR CHEST 1V ? INDICATIONS:? short of breath ? TECHNIQUE:? One view of the chest was acquired.? ? COMPARISON:? [facility], , CHEST 2 VIEW, 06/07/2013, 14:01. ? FINDINGS:? ? Surgical changes and devices:? None.? ? Lungs and pleura:? Lungs are clear.? No pleural effusions or pneumothorax.? ? Mediastinum:? Mediastinal contours appear normal.? Heart size is normal.? ? Bones and chest wall:? No suspicious bony lesions.? Overlying soft tissues appear unremarkable.? ? IMPRESSION:? No acute cardiopulmonary abnormality. ? ? ? Dictated by: Uli Nelson M.D. on 06/28/2022 at 11:12 ? ? CT scan - chest: Radiologist's Impression: PROCEDURE:? CT ANGIO CHEST PE PROTOCOL ? INDICATIONS:? hypoxia recent surgery ? TECHNIQUE:? After the administration of intravenous contrast, 2 mm thick sections acquired from the pulmonary apices to the posterior costophrenic angles.? 3-dimensional maximum intensity projection (MIP) coronal and sagittal reformats were then acquired through the thorax.? For radiation dose reduction, the following was used:? automated exposure control, adjustment of mA and/or kV according to patient size.? ? COMPARISON:? None. ? FINDINGS:? Image quality:? Excellent.? ? Pulmonary arteries:? There are subsegmental pulmonary emboli in the right lower lobe, right middle lobe, right upper lobe, and left lower lobe. ? Lungs and pleura:? Lungs are clear.? No pleural effusions or pneumothorax.? Central and peripheral airways are patent.? ? Mediastinum:? RV to LV ratio is 1.5.? Heart size is normal, without pericardial effusion. ?No mediastinal or hilar adenopathy.? Thoracic aorta is normal in caliber and enhancement.? Esophagus is normal in caliber, without hiatal hernia.? ? Bones and chest wall:? No suspicious bony lesions.? Ribs and thoracic spine appear intact throughout.? Thyroid gland is normal.? No axillary or supraclavicular adenopathy.? ? Abdomen:? Visualized upper abdominal solid organs appear normal in the early arterial phase of enhancement.? ? IMPRESSION:? 1. Multilobar subsegmental pulmonary emboli. 2. RV to LV ratio consistent with right ventricular strain. ? Findings were discussed with Dr. Laughlin at 12:48.? ? Dictated by: Uli Nelson M.D. on 06/28/2022 at 12:43? ECG Data Interpretation: Sinus rhythm rate 111 PA interval 166 QRS 78 QTC 437 Q-waves noted in lead 3 no T-wave inversions no priors EKG 2. Sinus rhythm rate 6 changes prior MDM Narrative Medical decision making narrative: Patient healthy 41-year-old female had a recent outpatient breast reduction and liposuction presenting today with sudden onset shortness of breath. She actually does get hypoxic with minimal exertion but at rest 93-95%. She is sinus tachycardic. High suspicion for pulmonary embolism she was started on a heparin drip prior to going to CT. CT does confirm bilateral multiple subsegmental pulmonary emboli. She is found to have right heart strain evidence on CT and by elevation troponin 0.6 and 0.7. She is not hypotensive and at this point does not meet criteria for embolectomy, I did confirm this with Dr. Thomason any 0. Blood work also shows mild leukocytosis 11.4 do not suspect infection probably stress reaction. Not have evidence of electrolyte abnormality or KENDRICK. Dr. Younger accepts patient Discharge Plan Departure Patient Disposition: Admitted As Inpatient Clinical Impression: Pulmonary embolism Qualifiers: Pulmonary embolism type: multiple subsegmental (without acute cor pulmonale) Qualified Code(s): I26.94 - Multiple subsegmental pulmonary emboli without acute cor pulmonale Admit Date/Time: 06/28/22 14:53 Admit Provider: Sarah Younger
[2022-06-28 11:51] LABS: Alanine Aminotransferase 36 IU/L (<35); Albumin 4.2 g/dL (3.5-5.0); Albumin Globulin Ratio 1.4 (1.0-2.8); Alkaline Phosphatase 75 U/L (38-126); Aspartate Aminotransferase 37 IU/L (14-36); BUN Creatinine Ratio 17.5 (6-22); Bilirubin Total 0.6 mg/dL (0.2-1.3); Blood Urea Nitrogen 10 mg/dL (7-17); Calcium 8.7 mg/dL (8.4-10.2); Carbon Dioxide 26 mmol/L (22-32); Chloride 101 mmol/L (98-107); Creatine Kinase 239 U/L (30-135); Estimated Glomerular Filt Rate > 60 mL/min (>60); Globulin 3.1 g/dL (1.7-4.1); Glucose 106 mg/dL (70-100); HEMOLYSIS < 15 (0-50); Lipase 60 U/L (23-300); Potassium 3.7 mmol/L (3.4-5.1); Sodium 137 mmol/L (137-145); Total Protein 7.3 g/dL (6.3-8.2)
[2022-06-28 12:00] LABS: NT-proBNP (BNP-Adult 18+) 341 pg/mL (<125)
--- NOTE | 2022-06-28 12:00 | PC.NURSE ---
Pts oxygen dropped to 87 while removing her clothing and post op compression garments. Once comfortably back in bed, oxygen back up to 93%
[2022-06-28 12:05] LABS: Pregnancy Test Serum,Qual Negative (Negative)
[2022-06-28 12:06] LABS: Troponin I 0.626 ng/mL (0.01-0.034)
[2022-06-28 12:07] LABS: CKMB % Relative Index 0.9 % (1.5-5.0); Creatine Kinase MB 2.17 ng/mL (<2.37)
[2022-06-28 12:22] LABS: Bacteria Urine Few (2-10); RBC Urine 1-5/HPF (0-5/HPF); Squamous Epithelial Cell Urine 10-30 /HPF (0-5/HPF); WBC Urine None Seen (0-5/HPF)
[2022-06-28] MEDS: HEPARIN 5,000 UNIT/ML VIAL 7400 UNIT IV (12:29)
[2022-06-28] MEDS: HEPARIN DRIP 25,000 UNIT/500 ML IV.SOLN 33.148 UNIT IV (12:31)
[2022-06-28 12:49] LABS: Influenza A - CEPHEID Flu A NEGATIVE (NEGATIVE); Influenza B - CEPHEID Flu B NEGATIVE (NEGATIVE); Respiratory Syncytial Virus Negative (Negative)
[2022-06-28 12:50] LABS: COVID-19 CEPHEID 4-PLEX PCR Negative (Negative)
--- NOTE | 2022-06-28 13:31 | PC.NURSE ---
Multiple recent surgeries/procedures. Florencio fink in March, breast reduction this past Wednesday, Liposuction thighs/abdomen/hip area this past Wednesday. Still wearing bandages and compression garments. Physician offered pain meds shortly after ER admission, pt declined at that time.
[2022-06-28 13:40] LABS: Creatine Kinase 164 U/L (30-135)
--- NOTE | 2022-06-28 13:43 | PC.NURSE ---
This RN checks in on patient after taking over care. Verified all meds and drips running per MAR. PureWick and susan care provided. Pt voided approximately 550 of clear urine. Pt currently reporting 4-5/10 of discomfort and requesting regular home med of 900mg of gabapentin that she takes 3 times per day. Provider aware of request. Call light within reach. Encouraged to use for needs.
[2022-06-28 13:55] LABS: CKMB % Relative Index 1.1 % (1.5-5.0); Creatine Kinase MB 1.85 ng/mL (<2.37)
[2022-06-28 13:56] LABS: Troponin I 0.701 ng/mL (0.01-0.034)
--- NOTE | 2022-06-28 14:34 | PC.NURSE ---
Checked on patient. Pt c/of of some breast discomfort due to recent surgery. Ice provided by this RN. Provider made aware.
[2022-06-28] MEDS: ACETAMINOPHEN 325 MG TABLET 975 MG PO (14:44)
[2022-06-28] MEDS: GABAPENTIN 300 MG CAPSULE 900 MG PO (14:45)
--- NOTE | 2022-06-28 14:54 | PC.NURSE ---
Pt check. Repositioned and pillows provided. Medicated per JUN. OK to eat regular diet per provider. Snack provided. Call light within reach.
--- NOTE | 2022-06-28 17:05 | P.HP_ITS ---
History of Present Illness History of Present Illness Chief complaint: SHORTNESS OF BREATH /HEART RATE HIGH/POST SURGERY Narrative: Patient is a 41-year-old female history of depression presenting today after elective breast reduction and liposuction and increasing shortness of breath.? Her procedure was says as an outpatient 4 days ago.? She is been doing well postoperatively to her last dose of oxycodone yesterday she is on gabapentin and meloxicam she feels like it he is controlling her pain.? She is not had any fever or chills.? But today suddenly when she got up this morning feeling significantly short of breath.? She denies any chest pain she just feels like she can not quite catch her breath.? She reports that after surgery she was having some upper respiratory like symptoms she was given an albuterol inhaler coughing up some phlegm.? She again was doing okay until this morning when she really can not catch her breath.? She was denies any orthopnea about was instructed postoperatively to sleep at a 30 degree angle.? She is short of breath at rest but O2? is 94-95% she is tachycardic with heart rate in the 115. Finding of fever chills nausea vomiting or diaphoresis. No chest pain. No p alpitations. Some discomfort where previous surgery occurred. Does require Miralax for regualr bowel movements but no diarrhea no dysuria hematuria. No difficulty with movement of any extremities. No changes sensation of extremities. Patient History Medical History Asthma 3 para 3 Hayfever Hidradenitis suppurativa Normal Papanicolaou smear Recurrent sinusitis Surgical History History of bilateral tubal ligation History of surgical removal of ganglion cyst Hx of colonoscopy (09/04/21) Status post delivery Status post functional endoscopic sinus surgery (FESS) (2009) Family & Social History Family History Family/Other Multiple sclerosis Other Alcoholism Alzheimer's dementia Cancer Social History: household members spouse,children Safety & Behavioral: Feels Safe in Current Yes Environment Been Physically Hurt or No Threatened By a Person Tobacco & Substance use: Smoking Status Former smoker alcohol intake current alcohol intake frequency a few times a month Substance Use Type does not use Meds Home Medications and Allergies Home Medications Medication Instructions Recorded Confirmed Type bupropion HCl 100 mg tablet,12 hr 100 mg PO DAILY 08/18/21 06/28/22 History sustained-release (Wellbutrin SR) lamotrigine 150 mg tablet 150 mg PO DAILY 08/18/21 06/28/22 History propranolol 40 mg tablet 40 mg PRN PRN Anxiety 11/05/21 06/28/22 History sertraline 25 mg tablet 50 mg PO DAILY 11/05/21 06/28/22 History albuterol sulfate 90 mcg/actuation 1 puff inhalation Q6HR PRN 06/28/22 06/28/22 History aerosol inhaler shortness of breath gabapentin 300 mg capsule 300 mg PO TID PRN Pain (Scale 06/28/22 06/28/22 History Score 1-3) meloxicam 7.5 mg tablet 7.5 mg PO QAM 06/28/22 06/28/22 History ondansetron 8 mg disintegrating 8 mg PO Q8HR PRN nausea 06/28/22 06/28/22 History tablet Allergies Allergy/AdvReac Type Severity Reaction Status Date / Time dextromethorphan Allergy Unknown HIVES Verified 11/26/21 09:37 [DEXTROMETHORPHAN] guaifenesin [GUAIFENESIN] Allergy Unknown HIVES Verified 11/26/21 09:37 latex Allergy Unknown Rash Verified 11/26/21 09:37 adhesive AdvReac Unknown Verified 11/26/21 09:37 Review of Systems Review of Systems Narrative: Fourteen system review was completed and pertinent findings are in history of chief complaint. Exam Vital Signs (past 8 hours): - 06/28/22 11:01 06/28/22 11:10 06/28/22 11:12 Temperature 99.1 F Pulse Rate 129 H Respiratory Rate 24 Blood Pressure 141/72 H 141/72 H Pulse Oximetry 91 91 Oxygen Delivery Method Room Air Oxygen Flow Rate 06/28/22 11:12 06/28/22 11:36 06/28/22 11:43 Temperature Pulse Rate 117 H 70 111 H Respiratory Rate 13 18 Blood Pressure Pulse Oximetry 94 91 96 Oxygen Delivery Method Oxygen Flow Rate 06/28/22 11:43 06/28/22 11:59 06/28/22 11:59 Temperature Pulse Rate 110 H Respiratory Rate 21 Blood Pressure 139/72 131/79 Pulse Oximetry 93 Oxygen Delivery Method Oxygen Flow Rate 06/28/22 12:00 06/28/22 12:00 06/28/22 12:15 Temperature Pulse Rate 109 H Respiratory Rate 16 Blood Pressure 123/70 123/68 Pulse Oximetry 93 Oxygen Delivery Method Oxygen Flow Rate 06/28/22 12:15 06/28/22 13:11 06/28/22 13:30 Temperature Pulse Rate 109 H 110 H 111 H Respiratory Rate 16 16 20 Blood Pressure Pulse Oximetry 94 Oxygen Delivery Method Oxygen Flow Rate 06/28/22 13:39 06/28/22 13:39 06/28/22 14:00 Temperature Pulse Rate 106 H Respiratory Rate 18 Blood Pressure 103/56 L 110/67 Pulse Oximetry 95 Oxygen Delivery Method Oxygen Flow Rate 06/28/22 14:00 06/28/22 14:30 06/28/22 14:30 Temperature Pulse Rate 107 H 104 H Respiratory Rate 12 17 Blood Pressure 119/67 Pulse Oximetry 95 94 Oxygen Delivery Method Room Air Oxygen Flow Rate 06/28/22 15:00 06/28/22 15:00 06/28/22 15:20 Temperature 98.0 F Pulse Rate 105 H 107 H Respiratory Rate 16 20 Blood Pressure 126/64 138/63 Pulse Oximetry 94 97 Oxygen Delivery Method Oxygen Flow Rate 97 06/28/22 15:18 06/28/22 15:18 06/28/22 15:51 Temperature Pulse Rate 107 H Respiratory Rate 16 Blood Pressure 127/63 Pulse Oximetry 95 85 L Oxygen Delivery Method Oxygen Flow Rate 06/28/22 16:19 06/28/22 16:30 06/28/22 17:00 Temperature Pulse Rate 107 H 104 H Respiratory Rate 16 Blood Pressure 131/90 Pulse Oximetry 95 94 Oxygen Delivery Method Oxygen Flow Rate 06/28/22 17:00 Temperature Pulse Rate 113 H Respiratory Rate 19 Blood Pressure Pulse Oximetry 94 Oxygen Delivery Method Oxygen Flow Rate Oxygen Delivery Method Room Air Oxygen Flow Rate 97 Narrative Exam Narrative: GENERAL:? Alert pleasant 41-year-old female appears in no acute distress. HEENT: Head atraumatic,EOMI, pupils reactive, face symmetric, moist mucous membranes CARDIOVASCULAR:? Tachycardic regular. Heart sounds S1 and S2 no extra sounds or murmurs. RESPIRATORY: Breath sounds equal bilaterally, no wheezes rales or rhonchi. ABDOMEN: Soft, nontender.? Normoactive bowel sounds all 4 quadrants.? No guarding or rebound. EXTREMITIES: Normal range of motion, no clubbing or edema.? Neurovascularly intact NEUROLOGICAL: Alert and oriented x4.Normal gait and speech. SKIN: Warm, dry, no laceration, no petechiae, no rashes or lesions. Objective Labs 06/28/22 11:24 06/28/22 11:24 Labs: Laboratory Results - last 24 hr 06/28/22 06/28/22 06/28/22 11:24 11:24 11:24 WBC 11.4 H RBC 4.11 Hgb 12.0 Hct 36.5 MCV 88.8 MCH 29.1 MCHC 32.8 RDW 13.9 Plt Count 352 Neut % (Auto) 81.9 H Lymph % (Auto) 10.6 L [place] % (Auto) 5.7 Eos % (Auto) 1.2 L Baso % (Auto) 0.6 Neut # (Auto) 9400 H Lymph # (Auto) 1200 [place] # (Auto) 600 Eos # (Auto) 100 Baso # (Auto) 100 PT 13.2 H INR 1.2 APTT 32 Sodium 137 Potassium 3.7 Chloride 101 Carbon Dioxide 26 BUN 10 Creatinine 0.57 Estimated GFR > 60 BUN/Creatinine Ratio 17.5 Glucose 106 H Calcium 8.7 Total Bilirubin 0.6 AST 37 H ALT 36 H Alkaline Phosphatase 75 Total Creatine Kinase 239 H CK-MB (CK-2) 2.17 CK-MB (CK-2) Rel Index 0.9 L Troponin I 0.626 H* NT-Pro-B Natriuret Pep Total Protein 7.3 Albumin 4.2 Globulin 3.1 Albumin/Globulin Ratio 1.4 Lipase 60 Serum , Qual Urine RBC Urine WBC Ur Squamous Epith Cells Urine Bacteria SARS-CoV-2 (PCR) Influenza A (RT-PCR) Influenza B (RT-PCR) RSV (PCR) 06/28/22 06/28/22 06/28/22 11:24 11:24 11:37 WBC RBC Hgb Hct MCV MCH MCHC RDW Plt Count Neut % (Auto) Lymph % (Auto) [place] % (Auto) Eos % (Auto) Baso % (Auto) Neut # (Auto) Lymph # (Auto) [place] # (Auto) Eos # (Auto) Baso # (Auto) PT INR APTT Sodium Potassium Chloride Carbon Dioxide BUN Creatinine Estimated GFR BUN/Creatinine Ratio Glucose Calcium Total Bilirubin AST ALT Alkaline Phosphatase Total Creatine Kinase CK-MB (CK-2) CK-MB (CK-2) Rel Index Troponin I NT-Pro-B Natriuret Pep 341 H Total Protein Albumin Globulin Albumin/Globulin Ratio Lipase Serum , Qual Negative Urine RBC 1-5/hpf Urine WBC None seen Ur Squamous Epith Cells 10-30 /hpf H Urine Bacteria Few (2-10) H SARS-CoV-2 (PCR) Influenza A (RT-PCR) Influenza B (RT-PCR) RSV (PCR) 06/28/22 06/28/22 06/28/22 12:00 12:35 13:20 WBC RBC Hgb Hct MCV MCH MCHC RDW Plt Count Neut % (Auto) Lymph % (Auto) [place] % (Auto) Eos % (Auto) Baso % (Auto) Neut # (Auto) Lymph # (Auto) [place] # (Auto) Eos # (Auto) Baso # (Auto) PT INR APTT Cancelled Sodium Potassium Chloride Carbon Dioxide BUN Creatinine Estimated GFR BUN/Creatinine Ratio Glucose Calcium Total Bilirubin AST ALT Alkaline Phosphatase Total Creatine Kinase 164 H CK-MB (CK-2) 1.85 CK-MB (CK-2) Rel Index 1.1 L Troponin I 0.701 H* NT-Pro-B Natriuret Pep Total Protein Albumin Globulin Albumin/Globulin Ratio Lipase Serum , Qual Urine RBC Urine WBC Ur Squamous Epith Cells Urine Bacteria SARS-CoV-2 (PCR) Negative Influenza A (RT-PCR) Flu a negative Influenza B (RT-PCR) Flu b negative RSV (PCR) Negative Assessment & Plan Assessment & Plan narrative: 1. Pulmonary embolism. CTA confirmed 1. Multilobar subsegmental pulmonary emboli. 2. RV to LV ratio consistent with right ventricular strain. Patient was bolused with intravenous heparin in the ER and infusion is continuing. This will continue for approximately 72 hours and the patient will be transitioned to a oral anticoagulant. 2. Shortness of breath. Consistent with underlying pulmonary embolism. Currently not requiring O2 supplementation. 3. Cardiac strain as noted on CTA and also with elevated troponin. Continue to monitor troponin. 4. Postoperative breast reduction and liposuction. Continue postoperative wound management.. Continue pain management for postoperative pain. 5. History of depression and anxiety. Continue bupropion and lamotrigine as well as sertraline at current doses. Provide Ativan 0.5 mg sublingual q.4h as needed 6. Postoperative pain. Gabapentin and meloxicam that was controlling the patient's pain appropriately. Available stronger medication if needed the says oxycodone 5 mg q.4h as needed. 7. Bowel routine management. Patient requires MiraLax as needed. Code status: Full code DVT prophylaxis: Currently receiving heparin infusion Substitute decision maker: Time Spent With Patient Critical Care time: I spent a total of [] minutes of critical care time on this patient's care today; this time is exclusive of procedural time.
[2022-06-28] MEDS: polyethylene glycoL 3350 17 GM POWD.PACK PO (18:13)
[2022-06-28 18:51] LABS: PTT Partial Thromboplastin Tim 128 SECONDS (26-36)
[2022-06-28 18:55] LABS: Troponin I 0.584 ng/mL (0.01-0.034)
--- NOTE | 2022-06-28 18:57 | DI.ECHO.S_ITS ---
[facility] [address] [place] [place]. [address] [place] +---------+ Hospital +---------+ : : [address] : : : [place] : : : : [id number] : : : : Phone: [phone]+ Echocardiogram Report + :Name: MACARIO CAIN Study Date: 06/29/2022 Height: 66 in : :Hospital ReadingLocation: Weight: 202 lb : : Gender: Female BSA: 2.0 m2 : :: 1980 Age: 41 yrs BP: 116/70 mmHg: :Reason For Study: Pulmonary embolism : :Ordering Physician: BRENDA, : :ALEXANDREA LOMBARDO Performed By: Ena Conde : :Referring: ALEXANDREA GUTIERREZ MD : + Interpretation Summary The study quality was technically limited. Grossly normal left ventricle size with ejection fraction 60-65%. The right ventricle is normal in size and function. No obvious valvular abnormality. Procedure: A two-dimensional transthoracic echocardiogram with color flow and Doppler was performed in limited views only. The study quality was technically limited. Unable to use pressure on probe due to incision and sutures from very recent breast resuction surgery. The patient was in sinus rhythm with heart rates between 82-86 bpm during the exam. Left Ventricle: The left ventricle is grossly normal size. The ejection fraction is estimated to be 60-65%. There are no obvious focal wall motion abnormalities noted but poor endocardial definition reduces the sensitivity for the detection of such. Right Ventricle: The right ventricle is normal in size and function. Atria: The left atrium is not well visualized. Right atrium not well visualized. There is no Doppler evidence for an atrial septal defect. Mitral Valve: The mitral valve is normal in structure and function. There is no mitral regurgitation noted. Aortic Valve: The aortic valve is normal in structure and function. No aortic regurgitation is present. Tricuspid Valve: The tricuspid valve is normal in structure and function. There is a trace or physiologic amount of tricuspid regurgitation. Pulmonic Valve: The pulmonic valve is not well visualized. Great Vessels: The IVC is of normal diameter and collapses greater than 50% with a sniff. This suggests a low right atrial pressure of 3 mm Hg. Pericardium/ Pleura There is a trivial pericardial effusion noted. There is no pleural effusion. MMode/2D Measurements & Calculations LVIDd: 4.0 cm IVC diam: 1.5 cm LVIDs: 2.7 cm FS: 33.0 % IVSd: 0.70 cm LVPWd: 0.85 cm LV hall. diameter/BSA (cm/m^2): 2.0 LV sys. diameter/BSA (cm/m^2): 1.3 TAPSE: 2.0 cm Doppler Measurements & Calculations TR max melany: 167.6 cm/sec TR max P.2 mmHg PA V2 max: 75.6 cm/sec PA V2 mean: 50.1 cm/sec PA mean P.2 mmHg Electronically signed by: Sonia Quinones on Reading Physician:06/29/2022 03:37 PM
[2022-06-28] MEDS: GABAPENTIN 300 MG CAPSULE PO (19:59)
--- NOTE | 2022-06-28 20:04 | PC.NURSE ---
Heparin drip decreased to 1455 units after being off for 30 minutes due to elevated PTT.
[2022-06-29] VITALS (49 sets, daily range): BP systolic 110–160; BP diastolic 55–95; PULSE 71–106; RESP 12–32; TEMP 36.9; O2SAT 91–100
[2022-06-29 00:53] LABS: PTT Partial Thromboplastin Tim 75 SECONDS (26-36)
[2022-06-29] MEDS: HEPARIN DRIP 25,000 UNIT/500 ML IV.SOLN 29.465 UNIT IV (04:54)
[2022-06-29] MEDS: ACETAMINOPHEN 325 MG TABLET 650 MG PO ×2 (05:28→17:28)
[2022-06-29 06:56] LABS: PTT Partial Thromboplastin Tim 76 SECONDS (26-36)
[2022-06-29] MEDS: SERTRALINE 50 MG TABLET PO ×2 (08:27→20:48)
[2022-06-29] MEDS: polyethylene glycoL 3350 17 GM POWD.PACK PO (08:27)
[2022-06-29] MEDS: GABAPENTIN 300 MG CAPSULE PO ×2 (08:27→17:28)
[2022-06-29] MEDS: MELOXICAM 7.5 MG TABLET PO (08:33)
--- NOTE | 2022-06-29 08:54 | P.PN_ITS ---
Subjective Subjective Interval history: Feeling better today. No shortness of breath when getting up to go to the bathroom. Not requiring any O2 supplementation. Discussed with the patient the length of time to be on the heparin infusion is 72 hours. Patient it would mean that on July 01 the heparin infusion will be discontinued and the patient can be transitioned to a NOAC for treatment of her pulmonary embolism. Exam Vital Signs (past 8 hours): - 06/29/22 01:00 06/29/22 01:30 06/29/22 02:00 Pulse Rate 84 83 Respiratory Rate 16 15 Blood Pressure 114/64 Pulse Oximetry 94 94 06/29/22 02:00 06/29/22 02:30 06/29/22 03:00 Pulse Rate 83 80 80 Respiratory Rate 15 15 14 Blood Pressure Pulse Oximetry 94 94 94 06/29/22 03:30 06/29/22 04:00 06/29/22 04:00 Pulse Rate 85 82 Respiratory Rate 17 15 Blood Pressure 110/57 L Pulse Oximetry 95 94 06/29/22 04:30 06/29/22 05:00 06/29/22 05:30 Pulse Rate 79 84 90 Respiratory Rate 14 15 19 Blood Pressure Pulse Oximetry 94 97 96 06/29/22 06:00 06/29/22 06:01 06/29/22 06:01 Pulse Rate 83 82 Respiratory Rate 18 18 Blood Pressure 131/60 Pulse Oximetry 97 96 Oxygen Delivery Method Room Air Oxygen Flow Rate 97 Narrative Exam Narrative: GENERAL:? Alert pleasant female appears in no acute distress. HEENT: Head atraumatic,EOMI, pupils reactive, face symmetric, moist mucous membranes CARDIOVASCULAR:? Pulse regular.? Heart sounds S1 and S2 no extra sounds or murmu rs. RESPIRATORY: Breath sounds equal bilaterally, no wheezes rales or rhonchi. ABDOMEN: Soft, nontender.? Normoactive bowel sounds all 4 quadrants.? No guarding or rebound. EXTREMITIES: Normal range of motion, no clubbing or edema.? Neurovascularly intact NEUROLOGICAL: Alert and oriented x4.Normal gait and speech. SKIN: Warm, dry, no laceration, no petechiae, no rashes or lesions Objective Labs 06/28/22 11:24 06/28/22 11:24 Labs: Laboratory Results - last 24 hr 06/28/22 06/28/22 06/28/22 11:24 11:24 11:24 WBC 11.4 H RBC 4.11 Hgb 12.0 Hct 36.5 MCV 88.8 MCH 29.1 MCHC 32.8 RDW 13.9 Plt Count 352 Neut % (Auto) 81.9 H Lymph % (Auto) 10.6 L [place] % (Auto) 5.7 Eos % (Auto) 1.2 L Baso % (Auto) 0.6 Neut # (Auto) 9400 H Lymph # (Auto) 1200 [place] # (Auto) 600 Eos # (Auto) 100 Baso # (Auto) 100 PT 13.2 H INR 1.2 APTT 32 Sodium 137 Potassium 3.7 Chloride 101 Carbon Dioxide 26 BUN 10 Creatinine 0.57 Estimated GFR > 60 BUN/Creatinine Ratio 17.5 Glucose 106 H Calcium 8.7 Total Bilirubin 0.6 AST 37 H ALT 36 H Alkaline Phosphatase 75 Total Creatine Kinase 239 H CK-MB (CK-2) 2.17 CK-MB (CK-2) Rel Index 0.9 L Troponin I 0.626 H* NT-Pro-B Natriuret Pep Total Protein 7.3 Albumin 4.2 Globulin 3.1 Albumin/Globulin Ratio 1.4 Lipase 60 Serum , Qual Urine RBC Urine WBC Ur Squamous Epith Cells Urine Bacteria SARS-CoV-2 (PCR) Influenza A (RT-PCR) Influenza B (RT-PCR) RSV (PCR) 06/28/22 06/28/22 06/28/22 11:24 11:24 11:37 WBC RBC Hgb Hct MCV MCH MCHC RDW Plt Count Neut % (Auto) Lymph % (Auto) [place] % (Auto) Eos % (Auto) Baso % (Auto) Neut # (Auto) Lymph # (Auto) [place] # (Auto) Eos # (Auto) Baso # (Auto) PT INR APTT Sodium Potassium Chloride Carbon Dioxide BUN Creatinine Estimated GFR BUN/Creatinine Ratio Glucose Calcium Total Bilirubin AST ALT Alkaline Phosphatase Total Creatine Kinase CK-MB (CK-2) CK-MB (CK-2) Rel Index Troponin I NT-Pro-B Natriuret Pep 341 H Total Protein Albumin Globulin Albumin/Globulin Ratio Lipase Serum , Qual Negative Urine RBC 1-5/hpf Urine WBC None seen Ur Squamous Epith Cells 10-30 /hpf H Urine Bacteria Few (2-10) H SARS-CoV-2 (PCR) Influenza A (RT-PCR) Influenza B (RT-PCR) RSV (PCR) 06/28/22 06/28/22 06/28/22 12:00 12:35 13:20 WBC RBC Hgb Hct MCV MCH MCHC RDW Plt Count Neut % (Auto) Lymph % (Auto) [place] % (Auto) Eos % (Auto) Baso % (Auto) Neut # (Auto) Lymph # (Auto) [place] # (Auto) Eos # (Auto) Baso # (Auto) PT INR APTT Cancelled Sodium Potassium Chloride Carbon Dioxide BUN Creatinine Estimated GFR BUN/Creatinine Ratio Glucose Calcium Total Bilirubin AST ALT Alkaline Phosphatase Total Creatine Kinase 164 H CK-MB (CK-2) 1.85 CK-MB (CK-2) Rel Index 1.1 L Troponin I 0.701 H* NT-Pro-B Natriuret Pep Total Protein Albumin Globulin Albumin/Globulin Ratio Lipase Serum , Qual Urine RBC Urine WBC Ur Squamous Epith Cells Urine Bacteria SARS-CoV-2 (PCR) Negative Influenza A (RT-PCR) Flu a negative Influenza B (RT-PCR) Flu b negative RSV (PCR) Negative 06/28/22 06/28/22 06/29/22 18:15 18:15 00:35 WBC RBC Hgb Hct MCV MCH MCHC RDW Plt Count Neut % (Auto) Lymph % (Auto) [place] % (Auto) Eos % (Auto) Baso % (Auto) Neut # (Auto) Lymph # (Auto) [place] # (Auto) Eos # (Auto) Baso # (Auto) PT INR APTT 128 H* D 75 H* D Sodium Potassium Chloride Carbon Dioxide BUN Creatinine Estimated GFR BUN/Creatinine Ratio Glucose Calcium Total Bilirubin AST ALT Alkaline Phosphatase Total Creatine Kinase CK-MB (CK-2) CK-MB (CK-2) Rel Index Troponin I 0.584 H* NT-Pro-B Natriuret Pep Total Protein Albumin Globulin Albumin/Globulin Ratio Lipase Serum , Qual Urine RBC Urine WBC Ur Squamous Epith Cells Urine Bacteria SARS-CoV-2 (PCR) Influenza A (RT-PCR) Influenza B (RT-PCR) RSV (PCR) 06/29/22 06:08 WBC RBC Hgb Hct MCV MCH MCHC RDW Plt Count Neut % (Auto) Lymph % (Auto) [place] % (Auto) Eos % (Auto) Baso % (Auto) Neut # (Auto) Lymph # (Auto) [place] # (Auto) Eos # (Auto) Baso # (Auto) PT INR APTT 76 H* Sodium Potassium Chloride Carbon Dioxide BUN Creatinine Estimated GFR BUN/Creatinine Ratio Glucose Calcium Total Bilirubin AST ALT Alkaline Phosphatase Total Creatine Kinase CK-MB (CK-2) CK-MB (CK-2) Rel Index Troponin I NT-Pro-B Natriuret Pep Total Protein Albumin Globulin Albumin/Globulin Ratio Lipase Serum , Qual Urine RBC Urine WBC Ur Squamous Epith Cells Urine Bacteria SARS-CoV-2 (PCR) Influenza A (RT-PCR) Influenza B (RT-PCR) RSV (PCR) [facility] Medical History Asthma 3 para 3 Hayfever Hidradenitis suppurativa Normal Papanicolaou smear Recurrent sinusitis Surgical History History of bilateral tubal ligation History of surgical removal of ganglion cyst Hx of colonoscopy (09/04/21) Status post delivery Status post functional endoscopic sinus surgery (FESS) (2009) Family History Family/Other Multiple sclerosis Other Alcoholism Alzheimer's dementia Cancer Social History household members: spouse and children Smoking Status: Former smoker alcohol intake: current Assessment & Plan Assessment & Plan narrative: 1. Pulmonary embolism.? CTA confirmed?1. Multilobar subsegmental pulmonary emboli. 2. RV to LV ratio consistent with right ventricular strain.? Patient was bolused with intravenous heparin in the ER and infusion is continuing.? This will continue for approximately 72 hours and the patient will be transitioned to a oral anticoagulant NOAC. . 2. Shortness of breath.? Consistent with underlying pulmonary embolism.? Currently not requiring O2 supplementation. All shortness of breath has resolved. 3. Cardiac strain as noted on CTA and also with elevated troponin.? Continue to monitor troponin. Troponin has been shown to be downtrending. 4. Postoperative breast reduction and liposuction.? Continue postoperative wound management..? Continue pain management for postoperative pain. 5. History of depression and anxiety.? Continue bupropion and? lamotrigine as well as sertraline at current doses.? Provide Ativan 0.5 mg sublingual q.4h as n eeded 6. Postoperative pain.? Gabapentin and meloxicam that was controlling the patient's pain appropriately along with acetaminophen. Available stronger medication if needed the says oxycodone 5 mg q.4h as needed. 7. Bowel routine management.? Patient requires MiraLax as needed. Code status:? Full code DVT prophylaxis:? Currently receiving heparin infusion Substitute decision maker:? Time Spent With Patient Critical Care time: I spent a total of [] minutes of critical care time on this patient's care today; this time is exclusive of procedural time. Quality VTE Deep Vein Thrombosis/Pulmonary Embolism Present on Admission: Yes
[2022-06-29] MEDS: lamoTRIgine 100 MG TABLET 150 MG PO (12:59)
[2022-06-29] MEDS: buPROPion SR 100 MG TAB PO (12:59)
--- NOTE | 2022-06-29 15:32 | CM.DANOTE ---
Patient is a 41 yo female who was admitted on 06/28/22 for SOB/Heart Rate. Pt has REG PPO for insurance and her PCP is Alida Branch. EMR was reviewed. Per MD, pt admitted for hep infusions for 2 days and then can switch to orals and likely d/c home with no needs. Pt lives in [place] with her spouse and family and is independent at baseline and drives and no needs identified at this time. No bedside assessment completed at this time due to triage needs. Plan: SW to follow for another day of hep drip and then plan of transition to orals and to d/c home and any further identified discharge planning needs. 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 No Advance Directives on File No History Provided By Patient,Medical Record Has Patient been admitted in last 30 No days? Prior Living Arrangements House Household Members spouse,children Type of transporation used prior to Drives own vehicle admit Independent with ADL's Yes Is patient alert and oriented? Yes Caregiver for Another Yes Barriers to Discharge No Discharge Plan Home Transportation Arrangement Likely spouse at discharge Referrals Initiated None needed Review Status In Process Please Provide Date Initial DC 06/29/22 Assessment Was Performed Next Review Type Continued Stay Review
[2022-06-29] MEDS: HYDROMORPHONE 2 MG TABLET 0.5 MG PO (19:53)
[2022-06-29] MEDS: ENOXAPARIN 100 MG/ML SYRINGE 95 MG SUBCUT (20:48)
--- NOTE | 2022-06-29 21:10 | PC.NURSE ---
Initial dose of lovenox given awaiting d/c of heparin at 2200.
[2022-06-30 03:26] VITALS: BP 113/56; PULSE 69; RESP 19; TEMP 36.7; O2SAT 96
[2022-06-30] MEDS: ACETAMINOPHEN 325 MG TABLET 650 MG PO ×2 (03:37→08:42)
[2022-06-30] MEDS: HYDROMORPHONE 2 MG TABLET 0.5 MG PO (03:37)
--- NOTE | 2022-06-30 08:22 | P.DS_ITS ---
History of Present Illness History of Present Illness Date Patient Seen: 06/30/22 Time Patient Seen: 08:22 Chief complaint: SHORTNESS OF BREATH /HEART RATE HIGH/POST SURGERY Narrative: Per admitting provider, Patient is a 41-year-old female history of depression presenting today after elective breast reduction and liposuction and increasing shortness of breath.? Her procedure was says as an outpatient 4 days ago.? She is been doing well postoperatively to her last dose of oxycodone yesterday she is on gabapentin and meloxicam she feels like it he is controlling her pain.? She is not had any fever or chills.? But today suddenly when she got up this morning feeling significantly short of breath.? She denies any chest pain she just feels like she can not quite catch her breath.? She reports that after surgery she was having some upper respiratory like symptoms she was given an albuterol inhaler coughing up some phlegm.? She again was doing okay until this morning when she really can not catch her breath.? She was denies any orthopnea about was instru cted postoperatively to sleep at a 30 degree angle.? She is short of breath at rest but O2? is 94-95% she is tachycardic with heart rate in the 115. Finding of fever chills nausea vomiting or diaphoresis. No chest pain. No palpitations. Some discomfort where previous surgery occurred. Does require Miralax for regualr bowel movements but no diarrhea no dysuria hematuria. No difficulty with movement of any extremities. No changes sensation of extremities. Discharge Providers Provider Date of admission: 06/28/22 14:53 Discharge Date: 06/30/22 Primary care physician: JOSÉ LUIS Quezada Discharge provider: Talat Ortiz DO Summary Hospital Course Discharge Diagnosis: 1. Pulmonary embolism, acute, provoked 2. Myocardial injury, improved 3. Postoperative breast reduction and liposuction. 4. History of depression and anxiety.? Hospital Course: This is a 41 year old female with recent breast reduction and liposuction who was admitted with a PE. She had elevated biomarkers including troponin and there was CT evidence of R heart strain. She was not recommended for embolectomy per ER provider discussion with outside specialists. She was admitted for further evaluation. Echocardiogram did not reveal evidence of R heart strain, and her vital sign abnormalities improved. Tachycardia resolved and troponin downtrended. She did not require any supplemental oxygen. she was transitioned to lovenox and on discharge she was transitioned to apixaban where she can expect 3-6 months of continued anticoagulation for provoked DVT. Time Spent with Patient Time spent: Greater than 30 minutes Exam Vital Signs (past 8 hours): - 06/30/22 03:26 Temperature 98.1 F Pulse Rate 69 Respiratory Rate 19 Blood Pressure 113/56 L Pulse Oximetry 96 Oxygen Delivery Method Room Air Oxygen Flow Rate 97 Narrative Exam Narrative: GENERAL:? Alert pleasant female appears in no acute distress. HEENT: Head atraumatic,EOMI, pupils reactive, face symmetric, moist mucous membranes CARDIOVASCULAR:? Pulse regular.? Heart sounds S1 and S2 no extra sounds or murmurs. RESPIRATORY: Breath sounds equal bilaterally, no wheezes rales or rhonchi. ABDOMEN: Soft, nontender.? Normoactive bowel sounds all 4 quadrants.? No guarding or rebound. EXTREMITIES: Normal range of motion, no clubbing or edema.? Neurovascularly intact NEUROLOGICAL: Alert and oriented x4.Normal gait and speech. SKIN: Warm, dry, no laceration, no petechiae, no rashes or lesions Objective Labs 06/28/22 11:24 06/28/22 11:24 [facility] Medical History Asthma 3 para 3 Hayfever Hidradenitis suppurativa Normal Papanicolaou smear Recurrent sinusitis Surgical History History of bilateral tubal ligation History of surgical removal of ganglion cyst Hx of colonoscopy (09/04/21) Status post delivery Status post functional endoscopic sinus surgery (FESS) (2009) Family History Family/Other Multiple sclerosis Other Alcoholism Alzheimer's dementia Cancer Social History household members: spouse and children Smoking Status: Former smoker alcohol intake: current Discharge Plan Discharge Plan Patient Disposition: Home Provider Discharge Comment: You were admitted to the hospital with a blood clot in your lungs. With improvement in vital signs you can discharge home. Please continue anticoagulation for 3-6 months, follow up with Alida Branch's office. Please obtain additional refills from PCP office moving forward, follow up with them in the next few weeks. Discharge orders & Medications Prescriptions: New Hermelinda DVT-PE Treat 30D Start 5 mg (74 tabs) tablets,dose pack See Rx Instructions .ROUTE .COMPLEX Qty: 74 0RF Rx Instructions: orally per package directions Continued lamotrigine 150 mg tablet 150 mg PO DAILY bupropion HCl [Wellbutrin SR] 100 mg tablet sustained-release 12 hr 100 mg PO DAILY propranolol 40 mg Tablet 40 mg PRN PRN (Reason: Anxiety) Patient Comments: for anxiety sertraline 25 mg tablet 50 mg PO DAILY ondansetron 8 mg tablet,disintegrating 8 mg PO Q8HR PRN (Reason: nausea) Patient Comments: Take 1 tablet by mouth every eight hours as needed Dissolve tablet under tongue as needed for nausea. gabapentin 300 mg capsule 300 mg PO TID PRN (Reason: Pain (Scale Score 1-3)) albuterol sulfate 90 mcg/actuation HFA aerosol inhaler 1 puff INHALATION Q6HR PRN (Reason: shortness of breath) Patient Comments: Inhale 1 puff as directed every six hours as needed 1 puff every 4-6 hours as needed/directed by physician Discontinued meloxicam 7.5 mg tablet 7.5 mg PO QAM Patient Comments: Take 1 tablet by mouth once a day as needed for pain Follow up/Referrals: Alida Branch ARNP [Primary Care Provider] - Diet/Activity/Treatments Diet: Diet as Tolerated Activity: As tolerated Visit Report/Discharge Packet Instructions: DI for Pulmonary Embolism, Apixaban Stand Alone Forms: Patient Portal/API, Stroke Signs & Symptoms Discharge Data Primary Care Provider: Alida Branch Quality VTE Deep Vein Thrombosis/Pulmonary Embolism Present on Admission: Yes
[2022-06-30] MEDS: APIXABAN 5 MG TABLET 10 MG PO (08:33)
[2022-06-30] MEDS: lamoTRIgine 100 MG TABLET 150 MG PO (08:34)
[2022-06-30] MEDS: SERTRALINE 50 MG TABLET PO (08:35)
[2022-06-30] MEDS: buPROPion SR 100 MG TAB PO (08:35)
[2022-06-30] MEDS: GABAPENTIN 300 MG CAPSULE PO (08:35)
--- NOTE | 2022-06-30 11:08 | PC.NURSE ---
Pt is A&OX3, VSS, afebrile on RA. She is eating breakfast and tolerating it well. She reports pain to breast incisional area this a.m. and medicated with prn medication gabapentin and tylenol with good effect. MD at bedside clearing her for discharge home this a.m. on oral anticoagulants. She verbalizes understanding of diagnosis and anticoagulants. She is escorted by DEPUTY [employer]OR IN [employer] and spouse to private vehicle for discharge home with this a.m. with all of her personal belongings.
--- NOTE | 2022-06-30 14:58 | CM.DPNOTE ---
DC Note Discharge home w/spouse and close outpatient follow up recommended No needs identified from this CM team JW
== END 2022-06-30 09:30 | disposition home or self-care (01) | DRG 300 ==
LOC: ED 14:53 → AC 14:55 → ICU 16:08
PROVIDERS: Admitting Provider Neuromusculoskeletal Medicine, Sports Medicine; Emergency Provider Emergency Medicine; Family Provider Obstetrics & Gynecology; PCP Internal Medicine; Referring Provider Emergency Medicine; Visit Provider Neuromusculoskeletal Medicine, Sports Medicine
DX: T81.72XA Complication of vein following a procedure, not elsewhere classified, initial encounter (principal); I5A Non-ischemic myocardial injury (non-traumatic); I26.94 Multiple subsegmental thrombotic pulmonary emboli without acute cor pulmonale; G89.18 Other acute postprocedural pain; F32.A Depression, unspecified; F41.9 Anxiety disorder, unspecified; J45.909 Unspecified asthma, uncomplicated; Z87.891 Personal history of nicotine dependence; Z20.822 Contact with and (suspected) exposure to COVID-19
CPT/HCPCS: 0241U; 36415; 71045; 71275; 80053; 81003; 81015; 81025; 82550; 82553; 83690; 83880; 84484; 84703; 85025; 85610; 85730; 87086; 93005; 93307; 96365; 96366; 96376; 99284; J1644; J1650; Q9967

== ENCOUNTER → 2022-07-01 15:16 | Outpatient (CLI) | payer OTHER, SELFPAY ==
[2022-06-28 15:45] VITALS: BMI 33.0
--- NOTE | 2022-07-01 | DI.CT.S_ITS ---
PROCEDURE: CT HEAD/BRAIN WO CON INDICATIONS: Headache, unspecified TECHNIQUE: Noncontrast 4.5 mm thick angled axial sections acquired from the foramen magnum to the vertex, with coronal and sagittal reformats. For radiation dose reduction, the following was used: automated exposure control, adjustment of mA and/or kV according to patient size. COMPARISON: None. FINDINGS: Image quality: Excellent. CSF spaces: Basal cisterns are patent. No extra-axial fluid collections. Ventricles are normal in size and shape. Brain: No midline shift. No intracranial masses or hemorrhage. Fermin-white matter interface is normal. Skull and face: Calvarium and visualized facial bones are intact, without suspicious lesions. Sinuses: Right maxillary sinus retention cyst IMPRESSION: Normal CT brain para right maxillary sinus retention cysts, partially imaged Approved by: Yaniv Alicia M.D. on 07/01/2022 at 19:21
== END ==
PROVIDERS: Family Provider Obstetrics & Gynecology; PCP Internal Medicine; Referring Provider Internal Medicine; Visit Provider Internal Medicine
DX: I26.99 Other pulmonary embolism without acute cor pulmonale (principal); J34.1 Cyst and mucocele of nose and nasal sinus; R51.9 Headache, unspecified; Z79.01 Long term (current) use of anticoagulants
CPT/HCPCS: 70450

== ENCOUNTER → 2022-11-20 15:14 | Outpatient (CLI) | payer OTHER, SELFPAY ==
[2022-06-28 15:45] VITALS: BMI 33.0
--- NOTE | 2022-11-20 | DI.RAD.S_ITS ---
PROCEDURE: XR FOOT LT MIN 3V INDICATIONS: pain of left heel TECHNIQUE: 3 views of the foot were acquired. COMPARISON: None. FINDINGS: Bones: No fractures or dislocations. No suspicious bony lesions. Well-defined plantar and dorsal calcaneal enthesophytes are seen. Soft tissues: Soft tissue swelling adjacent to plantar calcaneus is seen. No tibiotalar joint effusion. Achilles tendon appears normal. IMPRESSION: No acute left foot fracture or dislocation. Well-defined calcaneal enthesophytes with plantar left heel soft tissue swelling suggest clinical correlation for possible plantar fasciitis. Dictated by: Solitario Ceja M.D. on 11/20/2022 at 17:09 Approved by: Solitario Ceja M.D. on 11/20/2022 at 17:10
== END ==
PROVIDERS: Family Provider Obstetrics & Gynecology; PCP Internal Medicine; Referring Provider Internal Medicine; Visit Provider Internal Medicine
DX: M79.672 Pain in left foot (principal); M77.32 Calcaneal spur, left foot; M79.89 Other specified soft tissue disorders
CPT/HCPCS: 73630

== ENCOUNTER → 2023-02-19 09:50 | Outpatient (CLI) | payer OTHER, SELFPAY ==
[2022-06-28 15:45] VITALS: BMI 33.0
[2023-02-19 11:16] LABS: Alanine Aminotransferase 18 IU/L (<35); Albumin 4.6 g/dL (3.5-5.0); Albumin Globulin Ratio 1.6 (1.0-2.8); Alkaline Phosphatase 42 U/L (38-126); Aspartate Aminotransferase 19 IU/L (14-36); BUN Creatinine Ratio 14.5 (6-22); Bilirubin Total 0.5 mg/dL (0.2-1.3); Blood Urea Nitrogen 10 mg/dL (7-17); Calcium 9.4 mg/dL (8.4-10.2); Carbon Dioxide 26 mmol/L (22-32); Chloride 102 mmol/L (98-107); Cholesterol 176 mg/dL (140-199); Estimated Glomerular Filt Rate > 60 mL/min (>60); Globulin 2.8 g/dL (1.7-4.1); Glucose 87 mg/dL (70-100); HDL Cholesterol 44 mg/dL (40-60); HEMOLYSIS < 15 (0-50); LDL Cholesterol Calculated 121 mg/dL (<100); Potassium 3.8 mmol/L (3.4-5.1); Sodium 136 mmol/L (137-145); Total Protein 7.4 g/dL (6.3-8.2); Triglycerides 56 mg/dL (35-150)
[2023-02-19 12:04] LABS: Vitamin B12 899 pg/mL (239-931)
== END ==
PROVIDERS: Family Provider Obstetrics & Gynecology; PCP Internal Medicine; Referring Provider Naturopath; Visit Provider Naturopath
DX: E78.5 Hyperlipidemia, unspecified (principal); Z79.85 Long-term (current) use of injectable non-insulin antidiabetic drugs; R53.83 Other fatigue
CPT/HCPCS: 36415; 80053; 80061; 82607

== ENCOUNTER → 2023-03-17 10:16 | Outpatient (CLI) | payer OTHER, SELFPAY ==
[2022-06-28 15:45] VITALS: BMI 33.0
[2023-03-17 11:14] LABS: Hemoglobin A1C% w Est Avg Glu 5.5 % (4.0-6.0)
== END ==
PROVIDERS: Family Provider Obstetrics & Gynecology; PCP Internal Medicine; Referring Provider Naturopath; Visit Provider Naturopath
DX: E78.5 Hyperlipidemia, unspecified (principal); Z79.85 Long-term (current) use of injectable non-insulin antidiabetic drugs; R53.83 Other fatigue
CPT/HCPCS: 83036

== ENCOUNTER 2023-06-03 09:22 | Emergency (ER) | payer OTHER, SELFPAY ==
[2022-06-28 15:45] VITALS: BMI 33.0
[2023-06-03 09:25] VITALS: BP 132/69; PULSE 86; RESP 14; TEMP 36.6; O2SAT 99; BMI 26.6
--- NOTE | 2023-06-03 09:30 | DI.US.S_ITS ---
PROCEDURE: US PERIPH VENOUS LOW EXTREM LT INDICATIONS: POSTERIOR KNEE PAIN TECHNIQUE: Real-time imaging, as well as color and pulse Doppler interrogation, were performed of the lower extremity deep veins from the inguinal ligament to the popliteal fossa, with documentation of the visualized calf veins. COMPARISON: None. FINDINGS: The common femoral, femoral, popliteal, and the visualized calf veins are normally compressible, and free of intraluminal thrombus. Color and pulse Doppler demonstrate normal phasic intraluminal flow. There is normal augmentation response to distal compression maneuver. IMPRESSION: No findings of lower extremity deep venous thrombosis. Dictated by: Freddie Dominguez M.D. on 06/03/2023 at 10:28 Approved by: Freddie Dominguez M.D. on 06/03/2023 at 10:29
[2023-06-03 11:09] VITALS: BP 116/63; PULSE 66; RESP 16; TEMP 36.6; O2SAT 100
--- NOTE | 2023-06-03 12:02 | ED.EXTPRO ---
HPI - Extremity Problem <Radha Davenport PA-C - Last Filed: 06/03/23 12:10> General Chief complaint: Extremity Problem,Nontraumatic Stated complaint: sent by PCP for poss blood clot Time Seen by Provider: 06/03/23 11:05 Source: patient Mode of arrival: Ambulatory History of Present Illness HPI Narrative: Patient is a 42-year-old female who presents due to left lower extremity pain and concern for possible DVT. History of pulmonary embolism last year, 4 days postoperatively. She had a breast reduction surgery 1 month ago and was on Eliquis prophylactically during the perioperative period. She just finished Eliquis 4 days ago. She also went on a plane flight 10 days ago. She presents with several days of pain in her left inner thigh. Of note, during her breast reduction surgery they also repaired damage from previous left inner thigh liposuction. She has not currently taking any hormone medications. She denies any cough, bloody sputum, shortness of breath, chest pain, fever. She denies pain, swelling or warmth of her calf. The pain she is feeling is aching and in the left inner thigh from the knee to the mid thigh. There is no overlying redness or warmth. Related Data Home Medications Medication Instructions Recorded Confirmed bupropion HCl 100 mg tablet,12 hr 100 mg PO DAILY 08/18/21 09/16/22 sustained-release (Wellbutrin SR) lamotrigine 150 mg tablet 150 mg PO DAILY 08/18/21 09/16/22 propranolol 40 mg tablet 40 mg PRN PRN Anxiety 11/05/21 09/16/22 albuterol sulfate 90 mcg/actuation 1 puff inhalation Q6HR PRN 06/28/22 09/16/22 aerosol inhaler shortness of breath gabapentin 300 mg capsule 300 mg PO TID PRN Pain (Scale 06/28/22 09/16/22 Score 1-3) Previous Rx's Medication Instructions Recorded apixaban 5 mg (74 tabs) tablets in See Rx Instructions PO .COMPLEX 06/30/22 a dose pack (Eliquis DVT-PE Treat #74 ea 30D Start) Allergies Allergy/AdvReac Type Severity Reaction Status Date / Time dextromethorphan Allergy Unknown HIVES Verified 06/03/23 09:25 [DEXTROMETHORPHAN] guaifenesin [GUAIFENESIN] Allergy Unknown HIVES Verified 06/03/23 09:25 latex Allergy Unknown Rash Verified 06/03/23 09:25 adhesive AdvReac Unknown Verified 06/03/23 09:25 Review of Systems <Radha Davenport PA-C - Last Filed: 06/03/23 12:10> Review of Systems ROS Unobtainable: All systems reviewed & are unremarkable except as noted in HPI and below Patient History <Radha Davenport PA-C - Last Filed: 06/03/23 12:10> Medical History Asthma Hayfever Recurrent sinusitis 3 para 3 Normal Papanicolaou smear Hidradenitis suppurativa Surgical History Hx of colonoscopy (09/04/21) History of surgical removal of ganglion cyst Status post functional endoscopic sinus surgery (FESS) (2009) History of bilateral tubal ligation Status post delivery Family History Family/Other Multiple sclerosis Other Alcoholism Alzheimer's dementia Cancer Social History household members: spouse and children Smoking Status: Former smoker alcohol intake: current Smoking Status: Former smoker alcohol intake frequency: a few times a month Substance Use Type: does not use Exam <Radha Davenport PA-C - Last Filed: 06/03/23 12:10> Narrative Exam Narrative: GENERAL: 42 year old patient appears stated age. Well-developed patient, in no acute distress. NEURO: AOx3. HEAD: Atraumatic. Normocephalic. EYES: Pupils equal round and reactive. Extraocular motions intact. No scleral icterus. No injection or drainage. ENT: Nose without bleeding or purulent drainage. Airway patent. CARDIOVASCULAR: Regular rate and rhythm without murmurs, gallops, or rubs. RESPIRATORY: Clear to auscultation. Breath sounds equal bilaterally. No wheezes, rales, or rhonchi. EXTREMITIES: No edema of the left lower extremity. Calf is supple and nontender. The painful area of her left inner thigh is not swollen, erythematous or warm. SKIN: No rash or erythema of visible areas Initial Vital Signs Initial Vital Signs: Vital Signs Temperature 97.8 F 06/03/23 09:25 Pulse Rate 86 06/03/23 09:25 Respiratory Rate 14 06/03/23 09:25 Blood Pressure 132/69 06/03/23 09:25 Pulse Oximetry 99 06/03/23 09:25 Oxygen Delivery Method Room Air 06/03/23 09:25 <Mickey Sanchez MD - Last Filed: 06/03/23 13:34> Initial Vital Signs Initial Vital Signs: Vital Signs Temperature 97.8 F 06/03/23 09:25 Pulse Rate 86 06/03/23 09:25 Respiratory Rate 14 06/03/23 09:25 Blood Pressure 132/69 06/03/23 09:25 Pulse Oximetry 99 06/03/23 09:25 Oxygen Delivery Method Room Air 06/03/23 09:25 Scores <Radha Davenport PA-C - Last Filed: 06/03/23 12:10> Ben' Criteria for DVT Active Cancer (Treatment within 6 months): No Bedridden recently >3 days or major surgery within 4 weeks: Yes Calf Swelling >3cm compared to other leg: No Collateral (nonvericose) superficial veins present: No Entire leg swollen: No Localized tenderness along the deep vein system: Yes Pitting edema, confined to symtomatic leg: No Paralysis, paresis, or recent plaster immobilization of ext: No Previously documented DVT: Yes Alternative dx to DVT as likely or more likely: Yes Ben' criteria for DVT: 1 <Mickey Sanchez MD - Last Filed: 06/03/23 13:34> WellsWyatt Criteria for DVT Wells' criteria for DVT: 1 Course <Radha Davenport PA-C - Last Filed: 06/03/23 12:10> Orders Ordered: ED Orders 06/03/23 09:30 US periph venous low extrem lt Stat Vital Signs Vital signs: Vital Signs - 8 hr 06/03/23 09:25 06/03/23 11:09 Temperature 97.8 F 98 F Pulse Rate 86 66 Respiratory Rate 14 16 Blood Pressure 132/69 116/63 Pulse Oximetry 99 100 Oxygen Delivery Method Room Air Room Air <Mickey Sanchez MD - Last Filed: 06/03/23 13:34> Orders Ordered: ED Orders 06/03/23 09:30 US periph venous low extrem lt Stat Vital Signs Vital signs: Vital Signs - 8 hr 06/03/23 09:25 06/03/23 11:09 Temperature 97.8 F 98 F Pulse Rate 86 66 Respiratory Rate 14 16 Blood Pressure 132/69 116/63 Pulse Oximetry 99 100 Oxygen Delivery Method Room Air Room Air MDM - Extremity (Nontraumatic) <Radha Davenport PA-C - Last Filed: 06/03/23 12:10> Imaging Data US - DVT: Radiologist's Impression: PROCEDURE: US PERIP VENOUS LOW EXTREM LT INDICATIONS: POSTERIOR KNEE PAIN TECHNIQUE: Real-time imaging, as well as color and pulse Doppler interrogation, were performed of the lower extremity deep veins from the inguinal ligament to the popliteal fossa, with documentation of the visualized calf veins. COMPARISON: None. FINDINGS: The common femoral, femoral, popliteal, and the visualized calf veins are normally compressible, and free of intraluminal thrombus. Color and pulse Doppler demonstrate normal phasic intraluminal flow. There is normal augmentation response to distal compression maneuver. IMPRESSION: No findings of lower extremity deep venous thrombosis. Dictated by: Freddie Dominguez M.D. on 06/03/2023 at 10:28 Approved by: Freddie Dominguez M.D. on 06/03/2023 at 10:29 [facility] Narrative Medical decision making narrative: Multiple etiologies for patient's symptoms considered including, but not limited to: DVT, popliteal cyst, postoperative pain Patient with a history of PE after surgery, now 4 weeks after surgery (breast reduction as well as revision of previous left inner thigh liposuction) but on Eliquis prophylaxis, presents with several days of left inner thigh, posterior left knee pain. There is no symptoms DVT or PE. DVT ultrasound study is negative. Suspect pain is related to recent surgical procedure to revise previous liposuction. Advised supportive care and close monitoring. If develops new symptoms, return for reassessment. Patient's symptoms improved over duration of stay with above-stated therapies. Findings and discharge diagnosis discussed with patient/family followed by verbalization of understanding Return precautions discussed with patient/family whom verbalize understanding of diagnosis and plan Discharge Plan Departure Patient Disposition: Home Clinical Impression: Pain of left lower extremity Instructions: How To Perform RICE (Rest, Ice, Compress, Elevate) Activity Restrictions/Additional Instructions: *You have been diagnosed with suspected postoperative pain of the left inner thigh. There is no evidence of DVT on ultrasound today. Your vital signs are normal and your heart and lung examination is normal; I do not suspect pulmonary embolus. I would continue symptomatic management of the postoperative pain and precautions while traveling including wearing compression stockings, drinking plenty of water and getting up often to walk while on the plane. *What to do: *Please continue to take your regular medications as directed. [ ] New medication prescriptions sent to your pharmacy: [ ] [ ] New medication written as a paper prescription [x] No new medications given *Please follow up with your primary care provider in 2-3 days, call for an appointment. Let them know you were seen in the Emergency Department and that we ask that you be seen in follow up. We will electronically transmit a record of today's note if your PCP is in our system *If you do not have a primary care provider please contact the [facility] Resource line at [phone]. They will ask some questions about your medical history and help get you set up with a doctor in the community. *Return to Emergency Department if you should have any new, worsening or concerning symptoms, such as [fever greater than 101 F, shaking chills, worsening pain, persistent vomiting or other concerning symptoms]. Prescriptions: No Action lamotrigine 150 mg tablet 150 mg PO DAILY bupropion HCl [Wellbutrin SR] 100 mg tablet sustained-release 12 hr 100 mg PO DAILY propranolol 40 mg Tablet 40 mg PRN PRN (Reason: Anxiety) Patient Comments: for anxiety gabapentin 300 mg capsule 300 mg PO TID PRN (Reason: Pain (Scale Score 1-3)) albuterol sulfate 90 mcg/actuation HFA aerosol inhaler 1 puff INHALATION Q6HR PRN (Reason: shortness of breath) Patient Comments: Inhale 1 puff as directed every six hours as needed 1 puff every 4-6 hours as needed/directed by physician Hermelinda DVT-PE Treat 30D Start 5 mg (74 tabs) tablets,dose pack See Rx Instructions .ROUTE .COMPLEX Qty: 74 0RF Rx Instructions: orally per package directions Referrals: Alida Branch ARNP [Primary Care Provider] - Stand Alone Forms: Patient Portal/API ED Sign-out <Mickey Sanchez MD - Last Filed: 06/03/23 13:34> Cosign ED Attending Cosignature Attestation: I was immediately available in the department for consultation. ?This documentation has been reviewed and I agree with assessment and plan. Supervised by Mickey Sanchez MD
== END 2023-06-03 11:23 | disposition home or self-care (01) ==
PROVIDERS: Emergency Provider Physician Assistant; Family Provider Obstetrics & Gynecology; PCP Internal Medicine
DX: M79.605 Pain in left leg (principal)
CPT/HCPCS: 93971; 99281; 99283

== ENCOUNTER → 2024-01-14 08:16 | Outpatient (CLI) | payer OTHER, SELFPAY ==
[2022-06-28 15:45] VITALS: BMI 33.0
--- NOTE | 2024-01-14 | DI.MG.S_ITS ---
BILATERAL DIGITAL SCREENING MAMMOGRAM 3D/2D WITH CAD: 01/14/2024 CLINICAL: Routine screening. Family history of breast cancer. Comparison is made to exams dated: 06/04/2022 mammogram, 04/24/2021 mammogram, and 12/25/2019 mammogram - [facility]. The breasts are heterogeneously dense, which may obscure small masses (category c / 51-75% glandular tissue). Current study was also evaluated with a Computer Aided Detection (CAD) system. No significant masses, calcifications, or other findings are seen in either breast. Suspect interval breast reduction. IMPRESSION: NEGATIVE There is no mammographic evidence of malignancy. A 1 year screening mammogram is recommended. Based on the Tyrer Cuzick model (a risk assessment model) the patient's lifetime risk is 15.2% and her 10 year risk is 2.7%. According to the ACR, ACS, and NCCN guidelines, an annual breast MRI exam along with mammogram is recommended if the patient's lifetime risk is 20% or greater. This exam was interpreted at Station ID: [id number]. NOTE: For mammograms, a report in lay terms will be sent to the patient. Approximately 15% of breast malignancies will not be visualized mammographically. In the management of a palpable breast mass, a negative mammogram must not discourage biopsy of a clinically suspicious lesion. Electronically Signed By: Greg Gavlan M.D. [facility]/:01/18/2024 11:11:50 copy to: FATOU GAMBLE, [facility] letter sent: Normal Exam ACR BI-RADS Category 1: Negative
== END ==
PROVIDERS: Family Provider Obstetrics & Gynecology; PCP Internal Medicine; Referring Provider Internal Medicine; Visit Provider Internal Medicine
DX: Z12.31 Encounter for screening mammogram for malignant neoplasm of breast (principal); Z80.3 Family history of malignant neoplasm of breast; R92.333 Mammographic heterogeneous density, bilateral breasts
CPT/HCPCS: 77063; 77067

== ENCOUNTER 2024-08-05 12:19 | Emergency (ER) | payer OTHER, SELFPAY ==
[2022-06-28 15:45] VITALS: BMI 33.0
[2024-08-05] VITALS (9 sets, daily range): BP systolic 101–138; BP diastolic 50–72; PULSE 64–81; RESP 16–18; TEMP 37.1; O2SAT 99–100; BMI 26.6
--- NOTE | 2024-08-05 12:27 | DI.RAD.S_ITS ---
PROCEDURE: XR CHEST 1V INDICATIONS: Shortness of breath TECHNIQUE: One view of the chest was acquired. COMPARISON: [facility], CR, XR CHEST 1V, 06/28/2022, 11:25. FINDINGS: Surgical changes and devices: None. Lungs and pleura: Lungs are clear. No pleural effusions or pneumothorax. Mediastinum: Mediastinal contours appear normal. Heart size is normal. Bones and chest wall: No suspicious bony lesions. Overlying soft tissues appear unremarkable. IMPRESSION: No acute cardiopulmonary pathology. Dictated by: Solitario Ceja M.D. on 08/05/2024 at 12:51 Approved by: Solitario Ceja M.D. on 08/05/2024 at 12:51
--- NOTE | 2024-08-05 12:47 | EKG_ITS ---
[address] [address] Test Date: 2024-08-05 Pat Name: Faraz Arana Department: 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
[2024-08-05 12:58] LABS: Add Manual Diff / Slide Review NO; Basophils Absolute Auto 100 /uL (0-100); Basophils Percent Auto 2.6 % (0-2); Eosinophils Absolute Auto 200 /uL (0-450); Eosinophils Percent Auto 2.7 % (2-4); Hematocrit 38.4 % (36-46); Hemoglobin 13.1 g/dL (12.0-16.0); Lymphocytes Absolute Auto 1800 /uL (1100-4500); Lymphocytes Percent Auto 32.5 % (25-40); Mean Corpuscular Volume 91.3 fL (80-100); Monocytes Absolute Auto 400 /uL (0-900); Monocytes Percent Auto 7.7 % (3-14); Neutrophils Absolute Auto 3000 /uL (1500-7000); Neutrophils Percent Auto 54.5 % (50-75); Platelet Count 339 X10^3/uL (150-400); Red Blood Cell Count 4.21 X10^6/uL (4.0-5.2); Red Cell Distribution Width 13.4 % (11.6-14.8); White Blood Cell Count 5.6 X10^3/uL (4.5-11.0)
[2024-08-05 13:06] LABS: Alanine Aminotransferase 31 IU/L (<35); Albumin 4.6 g/dL (3.5-5.0); Albumin Globulin Ratio 1.8 (1.0-2.8); Alkaline Phosphatase 33 U/L (38-126); Aspartate Aminotransferase 29 IU/L (14-36); BUN Creatinine Ratio 13.8 (6-22); Bilirubin Total 0.6 mg/dL (0.2-1.3); Blood Urea Nitrogen 11 mg/dL (7-17); Calcium 9.3 mg/dL (8.4-10.2); Carbon Dioxide 28 mmol/L (22-32); Chloride 102 mmol/L (98-107); Estimated Glomerular Filt Rate > 60 mL/min (>60); Globulin 2.5 g/dL (1.7-4.1); Glucose 88 mg/dL (70-100); HEMOLYSIS < 15 (0-50); Potassium 3.6 mmol/L (3.4-5.1); Sodium 139 mmol/L (137-145); Total Protein 7.1 g/dL (6.3-8.2)
[2024-08-05 13:16] LABS: INR 1.2 (0.9-1.3); Prothrombin Time 13.1 SECONDS (9.4-12.5)
[2024-08-05 13:18] LABS: NT-proBNP (BNP-Adult 18+) < 20 pg/mL (<125); Troponin I < 0.012 ng/mL (0.01-0.034)
[2024-08-05 13:27] LABS: D Dimer < 215 ng/ml (<500)
--- NOTE | 2024-08-05 14:09 | ED_ITS ---
HPI - SOB/Dyspnea General Chief Complaint: Shortness of Breath/Dyspnea Stated Complaint: HX of Pulmonary Embolism Time Seen by Provider: 08/05/24 13:50 Source: patient Mode of arrival: Ambulatory Limitations: no limitations History of Present Illness HPI Narrative: Patient is a 43-year-old female history of pulmonary embolism induced by postoperative surgery in 2022 presents today with shortness of breath. She reports that she went to [place] last week felt like while on the airplane and in [place] she had a hard time taking a deep breath. Not significantly short of breath but could tell something was bit off. She has no fever chills or cough. No sore throat. Reports that all of her family has allergies. She was on Eliquis for 6 months and then taken off. She did not have any kind of genetic testing done it seems to be a provoked pulmonary embolism. Related Data Home Medications Medication Instructions Recorded Confirmed bupropion HCl 100 mg tablet,12 hr 100 mg PO DAILY 08/18/21 09/16/22 sustained-release (Wellbutrin SR) lamotrigine 150 mg tablet 150 mg PO DAILY 08/18/21 09/16/22 propranolol 40 mg tablet 40 mg PRN PRN Anxiety 11/05/21 09/16/22 albuterol sulfate 90 mcg/actuation 1 puff inhalation Q6HR PRN 06/28/22 09/16/22 aerosol inhaler shortness of breath gabapentin 300 mg capsule 300 mg PO TID PRN Pain (Scale 06/28/22 09/16/22 Score 1-3) Previous Rx's Medication Instructions Recorded apixaban 5 mg (74 tabs) tablets in See Rx Instructions PO .COMPLEX 06/30/22 a dose pack (Eliquis DVT-PE Treat #74 ea 30D Start) Testosterone Cream 1mg See Rx Instructions .Route 08/31/23 .COMPLEX #30 grams albuterol sulfate 90 mcg/actuation 2 puff inhalation Q4-6H PRN 08/05/24 aerosol inhaler shortness of breath or wheezing #8.5 grams Allergies Allergy/AdvReac Type Severity Reaction Status Date / Time dextromethorphan Allergy Unknown HIVES Verified 06/03/23 09:25 [DEXTROMETHORPHAN] guaifenesin [GUAIFENESIN] Allergy Unknown HIVES Verified 06/03/23 09:25 latex Allergy Unknown Rash Verified 06/03/23 09:25 adhesive AdvReac Unknown Verified 06/03/23 09:25 Patient History Medical History Asthma Hayfever Recurrent sinusitis 3 para 3 Normal Papanicolaou smear Hidradenitis suppurativa Surgical History Hx of colonoscopy (09/04/21) History of surgical removal of ganglion cyst Status post functional endoscopic sinus surgery (FESS) (2009) History of bilateral tubal ligation Status post delivery Family History Family/Other Multiple sclerosis Other Alcoholism Alzheimer's dementia Cancer Social History household members: spouse and children Smoking Status: Never smoker alcohol intake: current Smoking Status: Never smoker alcohol intake frequency: a few times a month Exam Initial Vital Signs Initial Vital Signs: Vital Signs Temperature 98.8 F 08/05/24 12:23 Pulse Rate 81 08/05/24 12:23 Respiratory Rate 18 08/05/24 12:23 Blood Pressure 138/72 08/05/24 12:23 Pulse Oximetry 100 08/05/24 12:23 Oxygen Delivery Method Room Air 08/05/24 12:23 Course Orders Ordered: ED Orders 08/05/24 12:27 XR chest 1V Stat EKG-12 Lead Stat Measure peak expiratory flow ONCE RT Consult Eval and Treat NOW 08/05/24 12:42 Complete Blood Count AUTO DIFF Stat Comprehensive Metabolic Panel Stat Lactate (Lactic Acid) Stat NT-proBNP (BNP-Adult 18+) Stat Troponin I Stat 08/05/24 13:01 D Dimer Stat Prothrombin Time INR Stat Discontinued Medications Albuterol (Albuterol 2.5 Mg/3 Ml Neb (Adult)) 2.5 mg INH NOW ONE Stop: 08/05/24 14:19 Last Admin: 08/05/24 14:40 Dose: 2.5 mg Documented By: SAT Vital Signs Vital signs: Vital Signs - 8 hr 08/05/24 12:23 08/05/24 12:58 08/05/24 13:00 Temperature 98.8 F Pulse Rate 81 67 66 Respiratory Rate 18 Blood Pressure 138/72 Pulse Oximetry 100 99 99 Oxygen Delivery Method Room Air 08/05/24 13:00 08/05/24 13:30 08/05/24 13:30 Temperature Pulse Rate 68 Respiratory Rate Blood Pressure 112/61 112/55 L Pulse Oximetry 99 Oxygen Delivery Method 08/05/24 14:00 08/05/24 14:01 08/05/24 14:01 Temperature Pulse Rate 66 64 Respiratory Rate Blood Pressure 101/50 L Pulse Oximetry 100 100 Oxygen Delivery Method 08/05/24 14:30 08/05/24 14:30 08/05/24 14:40 Temperature Pulse Rate 65 68 Respiratory Rate 16 Blood Pressure 107/55 L Pulse Oximetry 100 100 Oxygen Delivery Method Room Air 08/05/24 15:00 08/05/24 15:00 Temperature Pulse Rate 67 Respiratory Rate Blood Pressure 108/53 L Pulse Oximetry 99 Oxygen Delivery Method MDM - SOB/Dyspnea Lab Data 08/05/24 12:42 08/05/24 12:42 Labs: Lab Results 08/05/24 08/05/24 Range/Units 12:42 13:01 WBC 5.6 (4.5-11.0) X10^3/uL RBC 4.21 (4.0-5.2) X10^6/uL Hgb 13.1 (12.0-16.0) g/dL Hct 38.4 (36-46) % MCV 91.3 (80-100) fL MCH 31.0 (26-34) PG MCHC 34.0 (30-36) % RDW 13.4 (11.6-14.8) % Plt Count 339 (150-400) X10^3/uL Neut % (Auto) 54.5 (50-75) % Lymph % (Auto) 32.5 (25-40) % [place] % (Auto) 7.7 (3-14) % Eos % (Auto) 2.7 (2-4) % Baso % (Auto) 2.6 H (0-2) % Neut # (Auto) 3000 (9242-9027) /uL Lymph # (Auto) 1800 (4707-2013) /uL [place] # (Auto) 400 (0-900) /uL Eos # (Auto) 200 (0-450) /uL Baso # (Auto) 100 (0-100) /uL PT 13.1 H (9.4-12.5) SECONDS INR 1.2 (0.9-1.3) D-Dimer < 215 (<500) ng/ml Sodium 139 (137-145) mmol/L Potassium 3.6 (3.4-5.1) mmol/L Chloride 102 (98-107) mmol/L Carbon Dioxide 28 (22-32) mmol/L BUN 11 (7-17) mg/dL Creatinine 0.80 (0.52-1.04) mg/dL Estimated GFR > 60 (>60) mL/min BUN/Creatinine Ratio 13.8 (6-22) Glucose 88 (70-100) mg/dL Lactate 1.0 (0.7-2.1) mmol/L Calcium 9.3 (8.4-10.2) mg/dL Total Bilirubin 0.6 (0.2-1.3) mg/dL AST 29 (14-36) IU/L ALT 31 (<35) IU/L Alkaline Phosphatase 33 L (38-126) U/L Troponin I < 0.012 (0.01-0.034) ng/mL NT-Pro-B Natriuret Pep < 20 (<125) pg/mL Total Protein 7.1 (6.3-8.2) g/dL Albumin 4.6 (3.5-5.0) g/dL Globulin 2.5 (1.7-4.1) g/dL Albumin/Globulin Ratio 1.8 (1.0-2.8) Imaging Data Chest x-ray: Radiologist's Impression: PROCEDURE: XR CHEST 1V INDICATIONS: Shortness of breath TECHNIQUE: One view of the chest was acquired. COMPARISON: [facility], , XR CHEST 1V, 06/28/2022, 11:25. FINDINGS: Surgical changes and devices: None. Lungs and pleura: Lungs are clear. No pleural effusions or pneumothorax. Mediastinum: Mediastinal contours appear normal. Heart size is normal. Bones and chest wall: No suspicious bony lesions. Overlying soft tissues appear unremarkable. IMPRESSION: No acute cardiopulmonary pathology. Dictated by: Solitario Ceja M.D. on 08/05/2024 at 12:51 MDM Narrative Medical decision making narrative: Patient is a 43-year-old female with remote history of pulmonary embolism induced postoperatively presenting today with shortness of breath. She noticed it perhaps on an airplane to [place] noticed it in [place] and have noticed it ever since. Feels like she just can not take a deep breath. She reports it does not feel as bad as when she had her pulmonary embolism. She is not really having chest pain. Just feels like whenever she takes a breath she is not quite getting a lot of oxygen Blood work has been reviewed D-dimer less than 215 Troponin negative No leukocytosis no anemia Chest x-ray no acute cardiopulmonary process She received albuterol and actually reports significant improvement with the albuterol. She has year score which excludes PE. At this time her symptoms improved with albuterol she has a negative D-dimer and negative year score no need for angio at this time. However we did talk about a it was offered to her and she did decline at this time. She also has chronic ongoing back pain it sounds like she was having some sciatic pain going down her left leg. She was no real calf pain or swelling. I think this is unrelated to her breathing issue today. We discussed this as well. Recommend outpatient workup with MRI. YEARS Algorithm for Pulmonary Embolism (PE) from [email or web address] on 08/05/2024 All calculations should be rechecked by clinician prior to use RESULT SUMMARY: PE excluded YEARS algorithm rules out PE (0.43% with symptomatic VTE during 3-month follow- up) INPUTS: patient ?> 0 = No Clinical signs of DVT ?> 0 = No Hemoptysis ?> 0 = No PE most likely diagnosis ?> 1 = Yes D-dimer >=00 ng/mL FEU ?> 0 = No Discharge Plan Departure Patient Disposition: Home Clinical Impression: Mild reactive airways disease Instructions: DI for Reactive Airway Disease-Adult Activity Restrictions/Additional Instructions: *You have been diagnosed with reactive airway *What to do: At this time it is highly unlikely that you have a pulmonary embolism however not completely ruled out. I am glad that you are feeling a little bit better. I do recommend an outpatient MRI for your back *Continue to take medications as directed Albuterol inhaler 1-2 puffs every 4 hours if needed for cough or shortness of *Follow up with your primary care provider in 2-3 days or call [phone] *Return to ER if you should have increasing chest pain shortness of breath or any new, worsening or concerning symptoms Prescriptions: New albuterol sulfate 90 mcg/actuation HFA aerosol inhaler 2 puff INHALATION Q4-6H PRN (Reason: shortness of breath or wheezing) Qty: 8.5 0RF No Action Testosterone Cream 1mg See Rx Instructions .ROUTE .COMPLEX Qty: 30 3RF Rx Instructions: Apply once daily to rotating sites; lamotrigine 150 mg tablet 150 mg PO DAILY bupropion HCl [Wellbutrin SR] 100 mg tablet sustained-release 12 hr 100 mg PO DAILY propranolol 40 mg Tablet 40 mg PRN PRN (Reason: Anxiety) Patient Comments: for anxiety gabapentin 300 mg capsule 300 mg PO TID PRN (Reason: Pain (Scale Score 1-3)) albuterol sulfate 90 mcg/actuation HFA aerosol inhaler 1 puff INHALATION Q6HR PRN (Reason: shortness of breath) Patient Comments: Inhale 1 puff as directed every six hours as needed 1 puff every 4-6 hours as needed/directed by physician Hermelinda DVT-PE Treat 30D Start 5 mg (74 tabs) tablets,dose pack See Rx Instructions .ROUTE .COMPLEX Qty: 74 0RF Rx Instructions: orally per package directions Referrals: Alida Branch ARNP [Primary Care Provider] - Stand Alone Forms: Patient Portal/API/Survey
[2024-08-05] MEDS: ALBUTEROL 2.5 MG/3 ML NEB (ADULT) INH (14:40)
--- NOTE | 2024-08-05 15:32 | PC.NURSE ---
This RNs first interaction with patient. Patient standing in the rubin, then she walked back in to tx room 5 and removed her own IV from her arm. Patient states she wants to leave. Charge aware.
== END 2024-08-05 15:39 | disposition home or self-care (01) ==
PROVIDERS: Emergency Provider Emergency Medicine; Family Provider Obstetrics & Gynecology; PCP Internal Medicine
DX: J45.909 Unspecified asthma, uncomplicated (principal); Z86.711 Personal history of pulmonary embolism
CPT/HCPCS: 36415; 71045; 80053; 83605; 83880; 84484; 85025; 85379; 85610; 93005; 94640; 99283; 99284; J7613

== ENCOUNTER → 2024-08-22 08:52 | Outpatient (CLI) | payer OTHER, SELFPAY ==
[2022-06-28 15:45] VITALS: BMI 33.0
--- NOTE | 2024-08-22 08:54 | DI.RAD.S_ITS ---
PROCEDURE: XR HIP W PEL IF DONE CAPO MIN 4V INDICATIONS: BILATERAL HIP PAIN TECHNIQUE: AP pelvis with lateral view(s) of the both hip(s). COMPARISON: None. FINDINGS: Bones: There are no osseous abnormalities. SI and hip joints: Normal in width and alignment without arthritic change Soft tissues: No soft tissue swelling, calcification or mass. IMPRESSION: Normal pelvis Dictated by: Brice Carias M.D. on 08/23/2024 at 12:08 Approved by: Brice Carias M.D. on 08/23/2024 at 12:09
--- NOTE | 2024-08-22 08:54 | DI.RAD.S_ITS ---
PROCEDURE: XR LUMBAR SPINE 2-3V INDICATIONS: Low back pain, unspecified TECHNIQUE: 3 views of the lumbar spine were acquired. COMPARISON: [facility], CR, XR LUMBAR SPINE 2-3V, 05/23/2021, 10:07. FINDINGS: Lumbar spine curvature and alignment: Slight rightward curve of the lower thoracic upper lumbar spine appreciated Bones: There are no osseous abnormalities. Disc spaces: Mild L4-5 degenerative disc disease appreciated. There is mild L4-5 and L5-S1 degenerative facet disease Soft tissues: No soft tissue swelling, calcification or mass. IMPRESSION: Degeneration Dictated by: Brice Carias M.D. on 08/23/2024 at 12:10 Approved by: Brice Carias M.D. on 08/23/2024 at 12:10
== END ==
PROVIDERS: Family Provider Obstetrics & Gynecology; PCP Family Medicine; Referring Provider Family Medicine; Visit Provider Family Medicine
DX: M51.360 Other intervertebral disc degeneration, lumbar region with discogenic back pain only (principal); M47.816 Spondylosis without myelopathy or radiculopathy, lumbar region; M47.817 Spondylosis without myelopathy or radiculopathy, lumbosacral region; M25.552 Pain in left hip; M25.551 Pain in right hip
CPT/HCPCS: 72100; 73522

== ENCOUNTER → 2025-02-16 07:53 | Outpatient (CLI) | payer OTHER, SELFPAY ==
[2022-06-28 15:45] VITALS: BMI 33.0
--- NOTE | 2025-02-16 07:54 | DI.MG.S_ITS ---
MM screening mammo BI: 02/16/2025. BI-RADS: 1 CLINICAL: 44-year old female for bilateral screening mammogram. Tyrer-Cuzick lifetime risk of 14.6%. No personal or first-degree family history of breast cancer. The patient is status-post reduction mammoplasty. PRIOR EXAMS 01/14/2024, 06/04/2022, 04/24/2021, 12/25/2019. MAMMOGRAPHY TECHNIQUE: 2D and 3D (tomosynthesis) digital mammographic views obtained, with additional images as needed for full coverage. Current study was also evaluated with a Computer Aided Detection (CAD) system. DENSITY C. The breasts are heterogeneously dense, which may obscure small masses. MAMMOGRAPHY FINDINGS Bilateral: No suspicious mass, asymmetry, microcalcification, or other abnormality seen. IMPRESSION: * No evidence of malignancy. RECOMMENDATIONS Bilateral * Annual screening mammography. OVERALL ASSESSMENT CATEGORY BI-RADS-1: Negative. [employer] recommends annual screening mammography beginning at age 40 for women with average risk of breast cancer. ELECTRONICALLY SIGNED: Noreen Waite M.D. on 02/16/2025 at 05:09:30 PM PT Interpreting Station ID: [id number]
== END ==
LOC: MAMMO 07:54
PROVIDERS: Family Provider Obstetrics & Gynecology; PCP Family Medicine; Referring Provider Family Medicine; Visit Provider Family Medicine
DX: Z12.31 Encounter for screening mammogram for malignant neoplasm of breast (principal); R92.333 Mammographic heterogeneous density, bilateral breasts
CPT/HCPCS: 77063; 77067